=== PATIENT | female | born 1985 | race Caucasian/White ===

== ENCOUNTER 2021-07-20 13:41 | Inpatient (IN) | payer OTHER ==
[2021-07-20] MEDS ORDERED: IPRATROPIUM-ALBUTEROL 3 ML NEB INHALATION STA (13:49)
--- NOTE | 2021-07-20 14:12 | ED ---
General Adult HPI - General Source: patient, RN notes reviewed, old records reviewed Mode of arrival: ambulatory Limitations: no limitations <Fareed Asher - Last Filed: 07/20/21 14:58> <Jerome Cosby - Last Filed: 07/20/21 16:43> - General Chief complaint: Shortness of Breath Stated complaint: marco antonio Time Seen by Provider: 07/20/21 13:45 - History of Present Illness Initial comments: This is a 36-year-old female presents emergency Department complaining shortness of breath per patient spent in rehabilitation for 4 days she has rehabilitating for fentanyl heroin and benzodiazepines. Patient states she's had no fever chills. Patient states she had this happen before when she was withdrawing from her opiates. Patient denies any calf pain or leg swelling. Patient denies any chest pain. Patient has palpitations. Patient denies any cough. Patient states she just feels short of breath and they told her her oxygenation was poor. (Fareed Asher) - Related Data Home Medications Medication Instructions Recorded Confirmed Acetaminophen [Tylenol] 650 mg PO Q4H PRN 07/20/21 07/20/21 Calcium/Magnesium/Zinc/Vitamin D 1 tab PO TID PRN 07/20/21 07/20/21 Chlorpheniramine Maleate 4 mg PO Q4H PRN 07/20/21 07/20/21 [Chlor-Trimeton] Divalproex [Depakote] 250 mg PO BID 07/20/21 07/20/21 Docusate [Colace] 100 mg PO BID PRN 07/20/21 07/20/21 Folic Acid 1 mg PO DAILY 07/20/21 07/20/21 Hyoscyamine Sulfate [Levsin-Sl] 0.125 mg SL QID PRN 07/20/21 07/20/21 Ibuprofen [Motrin Ib] 600 mg PO Q6H PRN 07/20/21 07/20/21 Loperamide HCl [Imodium A-D] 4 mg PO QID PRN 07/20/21 07/20/21 Multivitamins, Thera [Multivitamin 1 tab PO DAILY 07/20/21 07/20/21 (formulary)] QUEtiapine [SEROquel] 400 mg PO HS 07/20/21 07/20/21 Thiamine [Vitamin B-1] 100 mg PO DAILY 07/20/21 07/20/21 buprenorphine HCL [Subutex] See Taper SUBLINGUAL DIRECTED 07/20/21 07/20/21 cloNIDine HCL [Catapres] 0.1 mg PO Q4H PRN 07/20/21 07/20/21 ondansetron HCL [Zofran] 8 mg PO Q6H PRN 07/20/21 07/20/21 Allergies Allergy/AdvReac Type Severity Reaction Status Date / Time No Known Allergies Allergy Verified 07/20/21 15:11 Review of Systems ROS Other: All systems not noted in ROS Statement are negative. <Fareed Asher - Last Filed: 07/20/21 14:58> ROS Other: All systems not noted in ROS Statement are negative. <Jerome Cosby - Last Filed: 07/20/21 16:43> ROS Statement: Those systems with pertinent positive or pertinent negative responses have been documented in the HPI. Past Medical History Past Medical History: Seizure Disorder Additional Past Medical History / Comment(s): HEPatitis C History of Any Multi-Drug Resistant Organisms: None Reported Past Surgical History: Section, Cholecystectomy Past Psychological History: Anxiety, Bipolar, Depression, Schizophrenia Smoking Status: Current every day smoker Past Alcohol Use History: None Reported Past Drug Use History: Heroin, Prescription Drug Abuse <Fareed Asher - Last Filed: 07/20/21 14:58> General Exam Limitations: no limitations <Fareed Asher - Last Filed: 07/20/21 14:58> - General Exam Comments Initial Comments: GENERAL: Patient is well-developed and well-nourished. Patient is nontoxic and well- hydrated and is in no acute distress. ENT: Neck is soft and supple. No significant lymphadenopathy is noted. Oropharynx is clear. Moist mucous membranes. Neck has full range of motion without eliciting any pain. EYES: The sclera were anicteric and conjunctiva were pink and moist. Extraocular movements were intact and pupils were equal round and reactive to light. Eyelids were unremarkable. PULMONARY: Decreased breath sounds with some extra wheezing. CARDIOVASCULAR: There is a regular rate and rhythm without any murmurs gallops or rubs. ABDOMEN: Soft and nontender with normal bowel sounds. SKIN: Skin is clear with no lesions or rashes and otherwise unremarkable. NEUROLOGIC: Patient is alert and oriented x3. Cranial nerves II through XII are grossly intact. Motor and sensory are also intact. Normal speech, volume and content. Symmetrical smile. MUSCULOSKELETAL: Normal extremities with adequate strength and full range of motion. No lower extremity swelling or edema. No calf tenderness. LYMPHATICS: No significant lymphadenopathy is noted PSYCHIATRIC: Normal psychiatric evaluation. (Fareed Asher) Course <Jerome Cosby - Last Filed: 07/20/21 16:43> Vital Signs 07/20/21 07/20/21 07/20/21 13:44 15:03 15:21 Temperature 99.2 F Pulse Rate 102 H 92 94 Respiratory 24 20 20 Rate Blood Pressure 110/64 O2 Sat by Pulse 92 L Oximetry 07/20/21 07/20/21 15:36 16:39 Temperature 99 F Pulse Rate 95 89 Respiratory 18 18 Rate Blood Pressure 109/68 128/80 O2 Sat by Pulse 93 L 95 Oximetry - Reevaluation(s) Reevaluation #1: 07/20/21 16:41 Patient endorsed me pending CAT scan results CAT scan negative for PE however does show evidence of interstitial markings and atelectasis in the bases. Patient will be admitted case is discussed with Dr. Chris (Jerome Cosby) Medical Decision Making - Lab Data Result diagrams: 07/20/21 14:02 07/20/21 14:02 <Fareed Asher - Last Filed: 07/20/21 14:58> - Lab Data Result diagrams: 07/20/21 14:02 07/20/21 14:02 - Radiology Data Radiology results: report reviewed (Imaging reviewed as well as report no defi nitive evidence of pulmonary embolism or is evidence of atelectasis and basilar interstitial markings. Patient is still has diminished breath sounds with wheezing though she does states she feels better.), image reviewed <Jerome Cosby - Last Filed: 07/20/21 16:43> - Medical Decision Making EKG shows normal sinus rhythm at 96 bpm UT interval 144 QRS is 76 QT interval 374 QTC is 472. Patient's EKG shows no ST segment elevation or depression. Patient received albuterol treatment 2 and steroids. Patient's d-dimer was elevated so her to CAT scan to rule out PE. I signed out the patient Dr. Cosby at 3 PM. He'll be taking over the care. (Fareed Asher) - Lab Data Lab Results 07/20/21 07/20/21 07/20/21 Range/Units 14:02 14:02 14:02 WBC 23.5 H (3.8-10.6) k/uL RBC 4.36 (3.80-5.40) m/uL Hgb 13.1 (11.4-16.0) gm/dL Hct 39.7 (34.0-46.0) % MCV 91.1 (80.0-100.0) fL MCH 30.1 (25.0-35.0) pg MCHC 33.0 (31.0-37.0) g/dL RDW 13.7 (11.5-15.5) % Plt Count 261 (150-450) k/uL MPV 8.0 Neutrophils % (Manual) 80 % Band Neuts % (Manual) 8 % Lymphocytes % (Manual) 6 % Monocytes % (Manual) 6 % Neutrophils # (Manual) 20.60 H (1.3-7.7) k/uL Lymphocytes # (Manual) 1.41 (1.0-4.8) k/uL Monocytes # (Manual) 1.41 H (0-1.0) k/uL Nucleated RBCs 0 (0-0) /100 WBC Manual Slide Review Performed Toxic Vacuolation Present Poikilocytosis (manual Present Anisocytosis (manual) Present PT 10.2 (9.0-12.0) sec INR 0.9 (<1.2) APTT 22.8 (22.0-30.0) sec D-Dimer 0.76 H (<0.60) mg/L FEU Sodium 140 (137-145) mmol/L Potassium 4.1 (3.5-5.1) mmol/L Chloride 104 (98-107) mmol/L Carbon Dioxide 29 (22-30) mmol/L Anion Gap 7 mmol/L BUN 18 H (7-17) mg/dL Creatinine 0.83 (0.52-1.04) mg/dL Est GFR (CKD-EPI)AfAm >90 (>60 ml/min/1.73 sqM) Est GFR (CKD-EPI)NonAf >90 (>60 ml/min/1.73 sqM) Glucose 140 H (74-99) mg/dL Plasma Lactic Acid Tenzin (0.7-2.0) mmol/L Calcium 9.3 (8.4-10.2) mg/dL Total Bilirubin 0.4 (0.2-1.3) mg/dL AST 67 H (14-36) U/L ALT 39 H (4-34) U/L Alkaline Phosphatase 113 (38-126) U/L Troponin I (0.000-0.034) ng/mL NT-Pro-B Natriuret Pep pg/mL Total Protein 6.8 (6.3-8.2) g/dL Albumin 3.2 L (3.5-5.0) g/dL Coronavirus (PCR) (Not Detectd) 07/20/21 07/20/21 07/20/21 Range/Units 14:02 14:02 14:02 WBC (3.8-10.6) k/uL RBC (3.80-5.40) m/uL Hgb (11.4-16.0) gm/dL Hct (34.0-46.0) % MCV (80.0-100.0) fL MCH (25.0-35.0) pg MCHC (31.0-37.0) g/dL RDW (11.5-15.5) % Plt Count (150-450) k/uL MPV Neutrophils % (Manual) % Band Neuts % (Manual) % Lymphocytes % (Manual) % Monocytes % (Manual) % Neutrophils # (Manual) (1.3-7.7) k/uL Lymphocytes # (Manual) (1.0-4.8) k/uL Monocytes # (Manual) (0-1.0) k/uL Nucleated RBCs (0-0) /100 WBC Manual Slide Review Toxic Vacuolation Poikilocytosis (manual Anisocytosis (manual) PT (9.0-12.0) sec INR (<1.2) APTT (22.0-30.0) sec D-Dimer (<0.60) mg/L FEU Sodium (137-145) mmol/L Potassium (3.5-5.1) mmol/L Chloride (98-107) mmol/L Carbon Dioxide (22-30) mmol/L Anion Gap mmol/L BUN (7-17) mg/dL Creatinine (0.52-1.04) mg/dL Est GFR (CKD-EPI)AfAm (>60 ml/min/1.73 sqM) Est GFR (CKD-EPI)NonAf (>60 ml/min/1.73 sqM) Glucose (74-99) mg/dL Plasma Lactic Acid Tenzin 1.8 (0.7-2.0) mmol/L Calcium (8.4-10.2) mg/dL Total Bilirubin (0.2-1.3) mg/dL AST (14-36) U/L ALT (4-34) U/L Alkaline Phosphatase (38-126) U/L Troponin I <0.012 (0.000-0.034) ng/mL NT-Pro-B Natriuret Pep 1240 pg/mL Total Protein (6.3-8.2) g/dL Albumin (3.5-5.0) g/dL Coronavirus (PCR) (Not Detectd) 07/20/21 Range/Units 14:02 WBC (3.8-10.6) k/uL RBC (3.80-5.40) m/uL Hgb (11.4-16.0) gm/dL Hct (34.0-46.0) % MCV (80.0-100.0) fL MCH (25.0-35.0) pg MCHC (31.0-37.0) g/dL RDW (11.5-15.5) % Plt Count (150-450) k/uL MPV Neutrophils % (Manual) % Band Neuts % (Manual) % Lymphocytes % (Manual) % Monocytes % (Manual) % Neutrophils # (Manual) (1.3-7.7) k/uL Lymphocytes # (Manual) (1.0-4.8) k/uL Monocytes # (Manual) (0-1.0) k/uL Nucleated RBCs (0-0) /100 WBC Manual Slide Review Toxic Vacuolation Poikilocytosis (manual Anisocytosis (manual) PT (9.0-12.0) sec INR (<1.2) APTT (22.0-30.0) sec D-Dimer (<0.60) mg/L FEU Sodium (137-145) mmol/L Potassium (3.5-5.1) mmol/L Chloride (98-107) mmol/L Carbon Dioxide (22-30) mmol/L Anion Gap mmol/L BUN (7-17) mg/dL Creatinine (0.52-1.04) mg/dL Est GFR (CKD-EPI)AfAm (>60 ml/min/1.73 sqM) Est GFR (CKD-EPI)NonAf (>60 ml/min/1.73 sqM) Glucose (74-99) mg/dL Plasma Lactic Acid Tenzin (0.7-2.0) mmol/L Calcium (8.4-10.2) mg/dL Total Bilirubin (0.2-1.3) mg/dL AST (14-36) U/L ALT (4-34) U/L Alkaline Phosphatase (38-126) U/L Troponin I (0.000-0.034) ng/mL NT-Pro-B Natriuret Pep pg/mL Total Protein (6.3-8.2) g/dL Albumin (3.5-5.0) g/dL Coronavirus (PCR) Not Detected (Not Detectd) Disposition <Fareed Asher - Last Filed: 07/20/21 14:58> <Jerome Cosby - Last Filed: 07/20/21 16:43> Clinical Impression: Asthmatic bronchitis, Acute bronchospasm, Polysubstance abuse Disposition: ADMITTED IP TO THIS [facility] Condition: Fair Referrals: None,Stated [Primary Care Provider] - 1-2 days
[2021-07-20 14:31] LABS: ALT 39 U/L (4-34); AST 67 U/L (14-36); African American GFR (CKD) >90 (>60 ml/min/1.73 sqM); Albumin 3.2 g/dL (3.5-5.0); Alkaline Phosphatase 113 U/L (38-126); Anion Gap 7 mmol/L; Blood Urea Nitrogen 18 mg/dL (7-17); Calcium 9.3 mg/dL (8.4-10.2); Carbon Dioxide 29 mmol/L (22-30); Chloride 104 mmol/L (98-107); Glucose 140 mg/dL (74-99); Non-African American GFR(CKD) >90 (>60 ml/min/1.73 sqM); Potassium 4.1 mmol/L (3.5-5.1); Sodium 140 mmol/L (137-145); Total Bilirubin 0.4 mg/dL (0.2-1.3); Total Protein 6.8 g/dL (6.3-8.2)
[2021-07-20 14:32] LABS: HCT 39.7 % (34.0-46.0); HGB 13.1 gm/dL (11.4-16.0); MCH 30.1 pg (25.0-35.0); MCV 91.1 fL (80.0-100.0); Platelet Count 261 k/uL (150-450); RBC 4.36 m/uL (3.80-5.40); RDW 13.7 % (11.5-15.5); WBC 23.5 k/uL (3.8-10.6)
--- NOTE | 2021-07-20 14:35 | XR ---
EXAMINATION TYPE: XR chest 2V DATE OF EXAM: 07/20/2021 COMPARISON: NONE HISTORY: Difficulty breathing. Hypoxemia. TECHNIQUE: 2 views FINDINGS: Heart and mediastinum are normal. Lungs are clear. Diaphragm is normal. Bony thorax appears normal. IMPRESSION: Normal chest.
[2021-07-20 14:36] LABS: INR 0.9 (<1.2); Partial Thromboplastin Time 22.8 sec (22.0-30.0); Prothrombin Time 10.2 sec (9.0-12.0)
[2021-07-20] MEDS ORDERED: methylPREDNISolone SOD SUCCI 125 MG/2 ML VIAL IV STA (14:58)
[2021-07-20 15:32] LABS: Band Neutrophils % 8 %; Lymphocytes # (M) 1.41 k/uL (1.0-4.8); Monocytes # (M) 1.41 k/uL (0-1.0); Neutrophils % (M) 80 %; Nucleated Red Blood Cells 0 /100 WBC (0-0); Total Cells Counted 100
[2021-07-20 15:34] LABS: Anisocytosis (M) Present; Poikilocytosis (M) Present; Toxic Vacuolation Present
--- NOTE | 2021-07-20 16:24 | CT ---
EXAMINATION TYPE: CT chest angio for PE DATE OF EXAM: 07/20/2021 COMPARISON: None HISTORY: Elevated d-dimer CT DLP: 734.7 mGycm Automated exposure control for dose reduction was used. CONTRAST: Performed with IV Contrast, patient injected with 100 mL of Isovue 370. Images obtained from the thoracic inlet to the diaphragm with IV contrast. There are 3-D post process ed images. Mediastinum is normal. Thoracic aorta is intact. There is no aneurysm or dissection. There are no hil ar masses. There is normal contrast opacification of the pulmonary arteries. There are no filling def ects. There is some mild reticular infiltrate and atelectasis at the lung bases. There is no pleural effusi on. There is no pneumothorax. Upper lung doshi are clear. There is some spurring in the thoracic spine. There is no compression fracture. The sternum is intact . IMPRESSION: No evidence of pulmonary embolism. Minimal reticular interstitial infiltrate and atelectasis at the l virgilio bases. Normal heart.
[2021-07-20] MEDS ORDERED: IBUPROFEN 600 MG TAB PO PRN (16:44)
[2021-07-20] MEDS ORDERED: NON FORMULARY DRUG (Calcium/Magnesium/Zinc/Vitamin D 1 TAB) PO PRN (16:44)
[2021-07-20] MEDS ORDERED: ONDANSETRON 4 MG TAB PO PRN (16:44)
[2021-07-20] MEDS ORDERED: HYOSCYAMINE SULFATE 0.125 MG TAB PO PRN (16:44)
[2021-07-20] MEDS ORDERED: cloNIDine HCL 0.1 MG TAB PO PRN (16:44)
[2021-07-20] MEDS ORDERED: diphenhydrAMINE 25 MG CAP PO PRN (16:44)
[2021-07-20] MEDS: methylPREDNISolone SOD SUCCI 125 MG/2 ML VIAL IV SCH (19:13)
[2021-07-20] MEDS: SODIUM CHLORIDE 0.9% 1,000 ML IV SCH (19:13)
--- NOTE | 2021-07-20 20:20 | P.HPIM ---
History of Present Illness H&P Date: 07/20/21 Chief Complaint: Shortness of breath 36-year-old female presents emergency Department complaining shortness of breath per patient spent in rehabilitation for 4 days she has rehabilitating for fentanyl heroin and benzodiazepines. Patient states she's had no fever chills. Patient states she had this happen before when she was withdrawing from her opiates. Patient denies any calf pain or leg swelling. Patient denies any chest pain. Patient has palpitations. Patient denies any cough. Patient states she just feels short of breath and they told her her oxygenation was poor Workup in ED revealed elevated white blood count of 23.5, hemoglobin 13.1 with platelet count of 261, sodium 140, potassium 4.1, BUN/creatinine of 18/0.83 and glucose of 140; d-dimer is elevated CTA chest was done to rule out PE which was negative but did reveal interstitial markings and atelectasis and basis EKG shows normal sinus rhythm with no acute ST or T-wave changes Review of Systems REVIEW OF SYSTEMS: CONSTITUTIONAL: No fever, no malaise, no fatigue. HEENT: No recent visual problems or hearing problems. Denied any sore throat. CARDIOVASCULAR: No chest pain, orthopnea, PND, no palpitations, no syncope. PULMONARY: No shortness of breath, no cough, no hemoptysis. GASTROINTESTINAL: No diarrhea, no nausea, no vomiting, no abdominal pain. NEUROLOGICAL: No headaches, no weakness, no numbness. HEMATOLOGICAL: Denies any bleeding or petechiae. GENITOURINARY: Denies any burning micturition, frequency, or urgency. MUSCULOSKELETAL/RHEUMATOLOGICAL: Denies any joint pain, swelling, or any muscle pain. ENDOCRINE: Denies any polyuria or polydipsia. The rest of the 14-point review of systems is negative. Past Medical History Past Medical History: Seizure Disorder Additional Past Medical History / Comment(s): HEPatitis C History of Any Multi-Drug Resistant Organisms: None Reported Past Surgical History: Section, Cholecystectomy Past Anesthesia/Blood Transfusion Reactions: Previous Problems w/ Anesthesia Additional Past Anesthesia/Blood Transfusion Reaction / Comment(s): Pt states she has a tendency to have a hard time waking up after anesthesia. She states it just takes her a while to wake up. Past Psychological History: Anxiety, Bipolar, Depression, Schizophrenia Smoking Status: Current some day smoker Past Alcohol Use History: Abuse, Daily Additional Past Alcohol Use History / Comment(s): Pt states the last time she drank alcohol she was 23. She started smoking 2 ppd and states she smokes 10 cigarettes a day at this time. Past Drug Use History: Cocaine, Heroin, IV Drug Use, Marijuana, Methamphetamine, Opiates, Prescription Drug Abuse - Past Family History Father Family Medical History: Myocardial Infarction (OK) Mother Family Medical History: Myocardial Infarction (OK) Medications and Allergies Home Medications Medication Instructions Recorded Confirmed Type Acetaminophen [Tylenol] 650 mg PO Q4H PRN 07/20/21 07/20/21 History Calcium/Magnesium/Zinc/Vitamin D 1 tab PO TID PRN 07/20/21 07/20/21 History Chlorpheniramine Maleate 4 mg PO Q4H PRN 07/20/21 07/20/21 History [Chlor-Trimeton] Divalproex [Depakote] 250 mg PO BID 07/20/21 07/20/21 History Docusate [Colace] 100 mg PO BID PRN 07/20/21 07/20/21 History Folic Acid 1 mg PO DAILY 07/20/21 07/20/21 History Hyoscyamine Sulfate [Levsin-Sl] 0.125 mg SL QID PRN 07/20/21 07/20/21 History Ibuprofen [Motrin Ib] 600 mg PO Q6H PRN 07/20/21 07/20/21 History Loperamide HCl [Imodium A-D] 4 mg PO QID PRN 07/20/21 07/20/21 History Multivitamins, Thera [Multivitamin 1 tab PO DAILY 07/20/21 07/20/21 History (formulary)] QUEtiapine [SEROquel] 400 mg PO HS 07/20/21 07/20/21 History Thiamine [Vitamin B-1] 100 mg PO DAILY 07/20/21 07/20/21 History buprenorphine HCL [Subutex] See Taper SUBLINGUAL DIRECTED 07/20/21 07/20/21 History cloNIDine HCL [Catapres] 0.1 mg PO Q4H PRN 07/20/21 07/20/21 History ondansetron HCL [Zofran] 8 mg PO Q6H PRN 07/20/21 07/20/21 History Allergies Allergy/AdvReac Type Severity Reaction Status Date / Time No Known Allergies Allergy Verified 07/20/21 15:11 Physical Exam Vitals: Vital Signs Temp Pulse Pulse Resp BP BP Pulse Ox 07/20/21 19:15 98.4 F 88 16 120/76 95 07/20/21 17:31 99 F 85 18 121/69 95 07/20/21 16:39 99 F 89 18 128/80 95 07/20/21 15:36 95 18 109/68 93 L 07/20/21 15:21 94 20 07/20/21 15:03 92 20 07/20/21 13:44 99.2 F 102 H 24 110/64 92 L Intake and Output 07/20/21 07/20/21 07/20/21 06:59 14:59 22:59 Intake Total 180 Balance 180 Intake: Oral 180 Other: Weight 111.584 kg 111.584 kg - Constitutional General appearance: Present: average body habitus, cooperative, no acute distress - EENT Eyes: Present: anicteric sclerae, EOMI, PERRLA, normal appearance ENT: Present: hearing grossly normal, normal oropharynx Ears: bilateral: normal - Neck Neck: Present: normal ROM. Absent: lymphadenopathy, rigidity, thyromegaly Carotids: negative: bruit present Thyroid: bilateral: normal size, negative: enlarged, nodule - Respiratory Respiratory: bilateral: CTA, negative: rales, rhonchi, wheezing - Cardiovascular Rhythm: regular Heart sounds: normal: S1, S2 Abnormal Heart Sounds: Absent: systolic murmur, diastolic murmur - Gastrointestinal General gastrointestinal: Present: normal bowel sounds, soft. Absent: distended, organomegaly, tenderness - Genitourinary Genitourinary Comment(s): deferred - Integumentary Integumentary: Present: normal turgor. Absent: jaundiced, rash, ulcer - Neurologic Neurologic: Present: CNII-XII intact. Absent: focal deficits - Musculoskeletal Musculoskeletal: Present: gait normal, strength equal bilaterally - Psychiatric Psychiatric: Present: A&O x's 3, appropriate affect, intact judgment & insight Results CBC & Chem 7: 07/20/21 14:02 07/20/21 14:02 Labs: Abnormal Lab Results - Last 24 Hours (Table) 07/20/21 07/20/21 07/20/21 Range/Units 14:02 14:02 14:02 WBC 23.5 H (3.8-10.6) k/uL Neutrophils # (Manual) 20.60 H (1.3-7.7) k/uL Monocytes # (Manual) 1.41 H (0-1.0) k/uL D-Dimer 0.76 H (<0.60) mg/L FEU BUN 18 H (7-17) mg/dL Glucose 140 H (74-99) mg/dL AST 67 H (14-36) U/L ALT 39 H (4-34) U/L Albumin 3.2 L (3.5-5.0) g/dL Thrombosis Risk Factor Assmnt - Choose All That Apply Each Factor Represents 1 point: Obesity (BMI >25) Thrombosis Risk Factor Assessment Total Risk Factor Score: 1 Thrombosis Risk Factor Assessment Level: Low Risk Assessment and Plan Assessment: 1. Severe acute bronchospasm/bronchitis; patient received 1 dose of Rocephin 1 g; we will start patient on azithromycin 500 mg IV daily; Solu-Medrol 60 mg IV every 6 hours; O2 per nasal cannula and titrate as needed 2. Significant leukocytosis; sepsis versus reactive; we will monitor CBC, CRP and pro-calcitonin; we will initiate further sepsis workup if white blood count remains elevated 4. Hypertension; Catapres 0.1 mg by mouth every 4 hours 5. Bipolar disorder; we will continue with home dose of Seroquel and Depakote DVT prophylaxis; SCDs CODE STATUS; full code
[2021-07-20] MEDS ORDERED: PROMETHAZINE 25 MG TAB PO PRN (20:23)
[2021-07-20] MEDS: QUEtiapine 200 MG TAB PO SCH (20:26)
[2021-07-20] MEDS: IPRATROPIUM-ALBUTEROL 3 ML NEB INHALATION PRN (20:26)
[2021-07-20] MEDS: DIVALPROEX 250 MG TABLET.DR PO SCH (20:26)
[2021-07-21] MEDS: methylPREDNISolone SOD SUCCI 125 MG/2 ML VIAL IV SCH ×5 (01:44→20:09)
[2021-07-21] MEDS: SODIUM CHLORIDE 0.9% 1,000 ML IV SCH ×3 (04:26→22:42)
[2021-07-21] MEDS: IPRATROPIUM-ALBUTEROL 3 ML NEB INHALATION PRN ×2 (08:15→20:30)
[2021-07-21] MEDS: THIAMINE 100 MG TAB PO SCH (08:27)
[2021-07-21] MEDS: DIVALPROEX 250 MG TABLET.DR PO SCH ×2 (08:27→20:08)
[2021-07-21] MEDS: FOLIC ACID 1 MG TAB PO SCH (08:27)
[2021-07-21] MEDS: MULTIVITAMINS, THERA 1 EACH TAB PO SCH (08:27)
[2021-07-21 08:35] LABS: HCT 38.9 % (37.2-46.3); MCH 28.8 pg (27.0-32.0); MCHC 30.8 g/dL (32.0-37.0); MCV 93.3 fL (80.0-97.0); Platelet Count 241 X 10*3/uL (140-440); RBC 4.17 X 10*6/uL (4.10-5.20); RDW 13.5 % (11.5-14.5); WBC 17.09 X 10*3/uL (4.50-10.00)
[2021-07-21] MEDS ORDERED: AZITHROMYCIN 500 MG in SODIUM CHLORIDE 0.9% 250 ML IVPB SCH (09:00)
[2021-07-21 09:27] LABS: African American GFR (CKD) 137.8 (60.0-200.0); Anion Gap 13.9 mmol/L (4.00-12.00); BUN/Creat Ratio 24.83 Ratio (12.00-20.00); Blood Urea Nitrogen 14.9 mg/dL (9.0-27.0); Calcium 9.1 mg/dL (8.7-10.3); Carbon Dioxide 23.1 mmol/L (21.6-31.8); Non-African American GFR(CKD) 118.9 (60.0-200.0); Potassium 4.5 mmol/L (3.5-5.5)
[2021-07-21 10:20] LABS: C Reactive Protein 6.2 mg/dL (0.00-0.80)
[2021-07-21 10:21] LABS: Basophils # (A) 0.03 X 10*3/uL (0.00-0.10); Basophils % (A) 0.2 %; Eosinophils # (A) 0 X 10*3/uL (0.04-0.35); Eosinophils % (A) 0 %; Lymphocytes # (A) 1.18 X 10*3/uL (0.90-5.00); Lymphocytes % (A) 6.9 %; Monocytes # (A) 0.26 X 10*3/uL (0.20-1.00); Monocytes % (A) 1.5 %; Neutrophils # (A) 15.44 X 10*3/uL (1.80-7.70); Neutrophils % (A) 90.3 %
[2021-07-21] MEDS ORDERED: diazePAM 5 MG TAB PO STA (10:57)
[2021-07-21] MEDS ORDERED: LOPERAMIDE 2 MG CAP PO PRN (11:01)
--- NOTE | 2021-07-21 11:11 | P.PN ---
Subjective From records: 36-year-old female presents emergency Department complaining shortness of breath per patient spent in rehabilitation for 4 days she has rehabilitating for fentanyl heroin and benzodiazepines. Patient states she's had no fever chills. Patient states she had this happen before when she was withdrawing from her opiates. Patient denies any calf pain or leg swelling. Patient denies any chest pain. Patient has palpitations. Patient denies any cough. Patient states she just feels short of breath and they told her her oxygenation was poor Workup in ED revealed elevated white blood count of 23.5, hemoglobin 13.1 with platelet count of 261, sodium 140, potassium 4.1, BUN/creatinine of 18/0.83 and glucose of 140; d-dimer is elevated CTA chest was done to rule out PE which was negative but did reveal interstitial markings and atelectasis and basis EKG shows normal sinus rhythm with no acute ST or T-wave changes Subjective: 07/21/2021 This is a pleasant 36 years old female who presents on 07/20 from [facility] for shortness of breath and low oxygen reported in 80s, she wasn't [facility] for detection of from heroin, fentanyl and benzodiazepine. When I saw the patient she was lying in bed does not look tachypneic however she was complaining of from dyspnea. She states she was in [facility] twice before she was sent [place] [facility] [place] [facility] because she was over medicated. And after stabilization she was discharged [facility] about 2 weeks ago as per patient. Also she states that she was on oxygen at the previous hospital and ask her to follow up with [facility] as an outpatient, however she denies any [facility] she follow up with. She was not getting her oxygen at [facility] so she was sent to this facility. Condition denies chest pain. She is complaining from cough and some phlegm stating its greenish or yellow in color. She complains from pain everywhere. She was started on Suboxone equivalent at [facility] which is not available at her and that make her upset. However she received another pain medication here and 1 dose of volume is provided for her. She complains also from the area but no abdominal pain. No significant nausea or vomiting. No urinary complaints. She wants something for anxiety and she is hard to sleep On admission her CTA was negative for PE, competent was negative. Objective - Vital Signs Vital signs: Vital Signs Temp 98.3 F 07/21/21 07:00 Pulse 85 07/21/21 08:24 Resp 18 07/21/21 07:00 BP 164/81 07/21/21 07:00 Pulse Ox 95 07/21/21 08:18 Intake & Output 07/20/21 07/21/21 07/21/21 18:59 06:59 18:59 Intake Total 180 300 Balance 180 300 Weight 111.584 kg 111.584 kg Intake: Oral 180 300 Other: Voiding Method Toilet # Voids 2 - Exam GENERAL: The patient is alert and oriented x3, not in any acute distress. Obese HEENT: Pupils are round and equally reacting to light. EOMI. No scleral icterus. No conjunctival pallor. Normocephalic, atraumatic. No pharyngeal erythema. No thyromegaly. CARDIOVASCULAR: S1 and S2 present. No murmurs, rubs, or gallops. -PULMONARY: Chest is clear to auscultation, mild bilateral scattered wheezing, no crackles. ABDOMEN: Soft, nontender, nondistended, normoactive bowel sounds. No palpable organomegaly. MUSCULOSKELETAL: No joint swelling or deformity. EXTREMITIES: No cyanosis, clubbing, or pedal edema. NEUROLOGICAL: Gross neurological examination did not reveal any focal deficits. SKIN: No rashes. no petechiae. - Labs CBC & Chem 7: 07/21/21 04:43 07/21/21 04:43 Labs: Abnormal Lab Results - Last 24 Hours (Table) 07/20/21 07/20/21 07/20/21 Range/Units 14:02 14:02 14:02 WBC 23.5 H (3.8-10.6) k/uL MCHC (32.0-37.0) g/dL Immature Gran # (0.00-0.04) X 10*3/uL Neutrophils # (1.80-7.70) X 10*3/uL Neutrophils # (Manual) 20.60 H (1.3-7.7) k/uL Monocytes # (Manual) 1.41 H (0-1.0) k/uL Eosinophils # (0.04-0.35) X 10*3/uL D-Dimer 0.76 H (<0.60) mg/L FEU Anion Gap (4.00-12.00) mmol/L BUN 18 H (7-17) mg/dL BUN/Creatinine Ratio (12.00-20.00) Ratio Glucose 140 H (74-99) mg/dL AST 67 H (14-36) U/L ALT 39 H (4-34) U/L C-Reactive Protein (0.00-0.80) mg/dL Albumin 3.2 L (3.5-5.0) g/dL Procalcitonin (0.02-0.09) ng/mL 07/21/21 07/21/21 07/21/21 Range/Units 04:43 04:43 04:43 WBC 17.09 H (3.8-10.6) k/uL MCHC 30.8 L (32.0-37.0) g/dL Immature Gran # 0.18 H (0.00-0.04) X 10*3/uL Neutrophils # 15.44 H (1.80-7.70) X 10*3/uL Neutrophils # (Manual) (1.3-7.7) k/uL Monocytes # (Manual) (0-1.0) k/uL Eosinophils # 0 L (0.04-0.35) X 10*3/uL D-Dimer (<0.60) mg/L FEU Anion Gap 13.90 H (4.00-12.00) mmol/L BUN (7-17) mg/dL BUN/Creatinine Ratio 24.83 H (12.00-20.00) Ratio Glucose 190 H (74-99) mg/dL AST (14-36) U/L ALT (4-34) U/L C-Reactive Protein 6.20 H (0.00-0.80) mg/dL Albumin (3.5-5.0) g/dL Procalcitonin 2.33 H (0.02-0.09) ng/mL Assessment and Plan Assessment: Possible acute purulent tracheobronchitis Recent heroin abuse with injecting and sniffing, injecting into both forearms and hands high blood pressure bipolar disorder and Seroquel and Depakote Obesity Plan: This is a pleasant 36 years old female who presents with bronchitis and heroin withdrawal He was Zithromax, consult infectious disease team, check oxygen with rest on exertion. Check ultrasound of both legs Check urine analysis. Check for C. diff and start loperamide Labs and medication were reviewed.. Continue same treatment. Continue with symptomatic treatment. Resume home medication. Monitor lytes and vitals. DVT and GI prophylaxis. Further recommendationsas per clinical course of the patient DVT prophylaxis: Subcutaneous heparin GI Prophylaxis: Pepcid Prognosis is guarded
[2021-07-21 12:01] LABS: Appearance,Urine Clear (Clear); Bacteria,Urine Rare /hpf; Bilirubin,Urine Negative (Negative); Blood,Urine Large (Negative); Color,Urine Yellow; Glucose,Urine (UA) 3+ (Negative); Ketones,Urine 1+ (Negative); Leukocyte Esterase,Urine Negative (Negative); Mucus,Urine Rare /hpf; Nitrite,Urine Negative (Negative); Protein,Urine Trace (Negative); RBC,Urine >182 /hpf (0-5); Specific Gravity,Urine 1.027 (1.001-1.035); Squamous Epithelial Cell,Urine 4 /hpf (0-4); Urobilinogen,Urine <2.0 mg/dL (<2.0); WBC,Urine 9 /hpf (0-5)
[2021-07-21 12:14] LABS: Albumin 3.7 g/dL (3.5-5.0); Globulin 3.7 g/dL; Total Protein 7.4 g/dL (6.3-8.2)
[2021-07-21 12:15] LABS: ALT 36 U/L (4-34); AST 47 U/L (14-36); Alkaline Phosphatase 133 U/L (38-126); Total Bilirubin 0.3 mg/dL (0.2-1.3)
[2021-07-21 12:17] LABS: HCG,Qualitative Serum Not Detected
--- NOTE | 2021-07-21 12:25 | US ---
EXAMINATION TYPE: US venous doppler duplex LE DATE OF EXAM: 07/21/2021 12:06 PM COMPARISON: NONE CLINICAL HISTORY: leg swelling. SIDE PERFORMED: Bilateral TECHNIQUE: The lower extremity deep venous system is examined utilizing real time linear array sonog [place] with graded compression, doppler sonography and color-flow sonography. VESSELS IMAGED: Common Femoral Vein Deep Femoral Vein Greater Saphenous Vein * Femoral Vein Popliteal Vein Small Saphenous Vein * Proximal Calf Veins (* superficial vessels) Right Leg: Negative for DVT Left Leg: Negative for DVT Grayscale, color doppler, spectral doppler imaging performed of the deep veins of the bilateral lower extremities. There is normal flow, compressibility, vascular waveforms. IMPRESSION: No ultrasound evidence for acute DVT in either lower extremity.
[2021-07-21] MEDS: ACETAMINOPHEN TAB 325 MG TAB PO PRN (13:20)
[2021-07-21 15:54] VITALS: BMI 46.5
[2021-07-21] MEDS: cloNIDine HCL 0.1 MG TAB PO SCH ×2 (17:59→22:41)
[2021-07-21] MEDS: QUEtiapine 200 MG TAB PO SCH (20:08)
[2021-07-21] MEDS: FAMOTIDINE 20 MG/2 ML VIAL IV SCH (20:08)
[2021-07-21] MEDS: HEPARIN SODIUM,PORCINE/PF 5,000 UNIT/0.5 ML SYRINGE SQ SCH (20:09)
[2021-07-22] MEDS: methylPREDNISolone SOD SUCCI 125 MG/2 ML VIAL IV SCH ×6 (00:29→21:35)
[2021-07-22] MEDS: HALOPERIDOL LACTATE 5 MG/ML 1 ML VIAL IM PRN ×2 (03:42→13:27)
[2021-07-22 06:34] LABS: African American GFR (CKD) >90 (>60 ml/min/1.73 sqM); Anion Gap 8 mmol/L; Blood Urea Nitrogen 20 mg/dL (7-17); Calcium 8.6 mg/dL (8.4-10.2); Carbon Dioxide 23 mmol/L (22-30); Chloride 106 mmol/L (98-107); Glucose 211 mg/dL (74-99); Non-African American GFR(CKD) >90 (>60 ml/min/1.73 sqM); Potassium 4.8 mmol/L (3.5-5.1); Sodium 137 mmol/L (137-145)
--- NOTE | 2021-07-22 06:55 | P.CONS ---
History of Present Illness - Reason for Consult Consult date: 07/21/21 Leukocytosis , High procalcitonin Requesting physician: Soren E Sheet - Chief Complaint Shortness of breath x few days - History of Present Illness istory of present illness : Patient is 36-year-old female presenting to the ER yesterday afternoon for evaluation of shortness of breath and this patient presenting from the drug rehabilitation center for the patient has been there for 4 days rehabilitating from fentanyl and heroin and benzodiazepine patient mention she usually have the symptoms when she is withdrawing from her opiates the patient denies having any chest pain patient denies having any cough or sputum production no URI symptoms some nausea but no vomiting no abdominal pain or any diarrhea on presentation to the hospital the patient did have low- grade fever of 29.2 F patient was satting 90 to 93% on room air patient did have white count of 23,000 with a left shift kidney function was normal liver enzymes are mildly elevated mooney PCR was negative repeat white count this morning is 17,000 UA with evidence of hematuria infection was consulted for evaluation of leukocytosis and high procalcitonin patient did have a chest x-ray which was normal CT angiogram of the chest negative for PE however did show some mild reticular interstitial infiltrate and atelectasis at the lung bases patient has been started on Rocephin and Zithromax Review of system: CONSTITUTIONAL: Positive for weakness denies high-grade fever. EYES: No complaint. ENT: No complaint. RESPITORY SYSTEM: As per history of present illness. CARDIOVASCULAR: No complaint. GENITOURINARY: No complaint. GASTROINTESTINAL: No complaint. MUSCULOSKELETAL: No complaint. INTEGUMENTARY: No complaint. PSYCHOLOGIC: No complaint. ENDOCRINE: No complaint. NEUROLOGIC: No complaint. Past medical history : Reviewed, documented below Past surgical history : Reviewed, documented below Social history: Reviewed, documented below Medications: Reviewed, as documented below EXAMINATION: Vital sigans= Reviewed and documented below GENERAL DESCRIPTION: Middle-aged female lying in bed, no distress. No tachypnea or accessory muscle of respiration use. HEENT: Shows Pallor , no scleral icterus. Oral mucous membrane is dry. NECK: Trachea central, no thyromegaly. LUNGS: Unlabored breathing. Decreased breath sound at the base. No wheeze or crackle. HEART: S1, S2, regular rate and rhythm. ABDOMEN: Soft, no tenderness , guarding or rigidity EXTREMITIES: No edema of feet. SKIN: No rash, no masses palpable. NEUROLOGICAL: The patient is awake, alert, oriented x3, mood and affect normal. LABS AND RADIOLOGY: Reviewed results see below Assessment : Patient presented to hospital with increasing shortness of breath and this patient who did have minimal cough not bringing up any sputum patient did have a infiltrate on the CT with elevated procalcitonin concern for possible pneumonia possible community-acquired is currently do not have any other obvious focus of infection Plan: 1-Rocephin 1 g daily and Zithromax to continue 2-try to obtain a sputum for Gram stain and culture 3-gentle IV fluid We will follow on clinical condition and cultures to further adjust medication if needed Thank you for this consultation we will follow the patient along with you Past Medical History Past Medical History: Seizure Disorder Additional Past Medical History / Comment(s): HEPatitis C History of Any Multi-Drug Resistant Organisms: None Reported Past Surgical History: Section, Cholecystectomy Past Anesthesia/Blood Transfusion Reactions: Previous Problems w/ Anesthesia Additional Past Anesthesia/Blood Transfusion Reaction / Comm: Pt states she has a tendency to have a hard time waking up after anesthesia. She states it just takes her a while to wake up. Past Psychological History: Anxiety, Bipolar, Depression, Schizophrenia Smoking Status: Current some day smoker Past Alcohol Use History: Abuse, Daily Additional Past Alcohol Use History / Comment(s): Pt states the last time she drank alcohol she was 23. She started smoking 2 ppd and states she smokes 10 cigarettes a day at this time. Past Drug Use History: Cocaine, Heroin, IV Drug Use, Marijuana, Methamphetamine, Opiates, Prescription Drug Abuse - Past Family History Father Family Medical History: Myocardial Infarction ([place]) Mother Family Medical History: Myocardial Infarction ([place]) Medications and Allergies Home Medications Medication Instructions Recorded Confirmed Type Acetaminophen [Tylenol] 650 mg PO Q4H PRN 07/20/21 07/20/21 History Calcium/Magnesium/Zinc/Vitamin D 1 tab PO TID PRN 07/20/21 07/20/21 History Chlorpheniramine Maleate 4 mg PO Q4H PRN 07/20/21 07/20/21 History [Chlor-Trimeton] Divalproex [Depakote] 250 mg PO BID 07/20/21 07/20/21 History Docusate [Colace] 100 mg PO BID PRN 07/20/21 07/20/21 History Folic Acid 1 mg PO DAILY 07/20/21 07/20/21 History Hyoscyamine Sulfate [Levsin-Sl] 0.125 mg SL QID PRN 07/20/21 07/20/21 History Ibuprofen [Motrin Ib] 600 mg PO Q6H PRN 07/20/21 07/20/21 History Loperamide HCl [Imodium A-D] 4 mg PO QID PRN 07/20/21 07/20/21 History Multivitamins, Thera [Multivitamin 1 tab PO DAILY 07/20/21 07/20/21 History (formulary)] QUEtiapine [SEROquel] 400 mg PO HS 07/20/21 07/20/21 History Thiamine [Vitamin B-1] 100 mg PO DAILY 07/20/21 07/20/21 History buprenorphine HCL [Subutex] See Taper SUBLINGUAL DIRECTED 07/20/21 07/20/21 History cloNIDine HCL [Catapres] 0.1 mg PO Q4H PRN 07/20/21 07/20/21 History ondansetron HCL [Zofran] 8 mg PO Q6H PRN 07/20/21 07/20/21 History Allergies Allergy/AdvReac Type Severity Reaction Status Date / Time No Known Allergies Allergy Verified 07/20/21 15:11 Physical Exam Vitals: Vital Signs Temp Pulse Pulse Resp BP Pulse Ox 07/22/21 02:06 98.5 F 77 16 144/82 93 L 07/21/21 21:01 98.2 F 97 22 145/82 95 07/21/21 20:43 92 07/21/21 20:31 90 96 07/21/21 15:00 98.2 F 91 16 139/76 95 07/21/21 08:24 85 07/21/21 08:18 95 07/21/21 08:15 85 07/21/21 07:00 98.3 F 90 18 164/81 99 Intake and Output 07/21/21 07/21/21 07/22/21 14:59 22:59 06:59 Intake Total 1826 118 Balance 1826 118 Intake: Intake, IV Titration 850 Amount Azithromycin 500 mg In 250 Sodium Chloride 0.9% 250 ml @ 250 mls/hr IVPB DAILY [facility] Rx#:[id number] Sodium Chloride 0.9% 1, 600 000 ml @ 100 mls/hr IV . Q10H KASSANDRA Rx#:[id number] Oral 976 118 Other: Voiding Method Toilet Toilet # Voids 2 Weight 111.584 kg Results CBC & Chem 7: 07/21/21 04:43 07/22/21 05:24 Labs: Abnormal Lab Results - Last 24 Hours (Table) 07/21/21 07/21/21 07/21/21 Range/Units 04:43 04:43 04:43 WBC 17.09 H (4.50-10.00) X 10*3/uL MCHC 30.8 L (32.0-37.0) g/dL Immature Gran # 0.18 H (0.00-0.04) X 10*3/uL Neutrophils # 15.44 H (1.80-7.70) X 10*3/uL Eosinophils # 0 L (0.04-0.35) X 10*3/uL Anion Gap 13.90 H (4.00-12.00) mmol/L BUN (7-17) mg/dL Creatinine (0.52-1.04) mg/dL BUN/Creatinine Ratio 24.83 H (12.00-20.00) Ratio Glucose 190 H (70-110) mg/dL AST (14-36) U/L ALT (4-34) U/L Alkaline Phosphatase (38-126) U/L C-Reactive Protein 6.20 H (0.00-0.80) mg/dL Procalcitonin 2.33 H (0.02-0.09) ng/mL Urine Protein (Negative) Urine Glucose (UA) (Negative) Urine Ketones (Negative) Urine Blood (Negative) Urine RBC (0-5) /hpf Urine WBC (0-5) /hpf Urine Bacteria (None) /hpf Urine Mucus (None) /hpf 07/21/21 07/21/21 07/22/21 Range/Units 11:23 11:23 05:24 WBC (4.50-10.00) X 10*3/uL MCHC (32.0-37.0) g/dL Immature Gran # (0.00-0.04) X 10*3/uL Neutrophils # (1.80-7.70) X 10*3/uL Eosinophils # (0.04-0.35) X 10*3/uL Anion Gap (4.00-12.00) mmol/L BUN 20 H (7-17) mg/dL Creatinine 0.46 L (0.52-1.04) mg/dL BUN/Creatinine Ratio (12.00-20.00) Ratio Glucose 211 H (70-110) mg/dL AST 47 H (14-36) U/L ALT 36 H (4-34) U/L Alkaline Phosphatase 133 H (38-126) U/L C-Reactive Protein (0.00-0.80) mg/dL Procalcitonin (0.02-0.09) ng/mL Urine Protein Trace H (Negative) Urine Glucose (UA) 3+ H (Negative) Urine Ketones 1+ H (Negative) Urine Blood Large H (Negative) Urine RBC >182 H (0-5) /hpf Urine WBC 9 H (0-5) /hpf Urine Bacteria Rare H (None) /hpf Urine Mucus Rare H (None) /hpf Microbiology - Last 24 Hours (Table) 07/20/21 15:29 Blood Culture Gram Stain - Preliminary Blood Blood Culture - Preliminary Streptococcus species 07/20/21 15:29 Blood Culture - Final Blood 07/20/21 15:10 Blood Culture - Preliminary Blood No Growth after 24 hours
[2021-07-22] MEDS: IPRATROPIUM-ALBUTEROL 3 ML NEB INHALATION PRN ×3 (07:24→18:13)
[2021-07-22 09:24] LABS: Basophils # (A) 0.02 X 10*3/uL (0.00-0.10); Basophils % (A) 0.1 %; Eosinophils # (A) 0 X 10*3/uL (0.04-0.35); Eosinophils % (A) 0 %; HCT 37.8 % (37.2-46.3); HGB 11.5 g/dL (12.0-15.0); Lymphocytes # (A) 1.11 X 10*3/uL (0.90-5.00); Lymphocytes % (A) 7.6 %; MCH 28.9 pg (27.0-32.0); MCHC 30.4 g/dL (32.0-37.0); Mean Platelet Volume 11.1 fL (9.5-12.2); Monocytes # (A) 0.45 X 10*3/uL (0.20-1.00); Monocytes % (A) 3.1 %; Neutrophils # (A) 12.79 X 10*3/uL (1.80-7.70); Platelet Count 248 X 10*3/uL (140-440); RBC 3.98 X 10*6/uL (4.10-5.20); RDW 13.4 % (11.5-14.5); WBC 14.54 X 10*3/uL (4.50-10.00)
--- NOTE | 2021-07-22 13:00 | P.CN ---
Psychiatric Consult - . Consult date: 07/22/21 Consult:: 07/22/21 12:59 IDENTIFYING DATA: This patient is a single, unemployed, 36-year-old female was admitted to the hospital for shortness of breath HISTORY OF PRESENT ILLNESS: The patient presented to the hospital on 07/20/2021, or shortness of breath. The patient was staying at [facility] for the past 4 days for fentanyl, heroin, and benzodiazepine abuse. The patient began expressing shortness of breath with poor oxygenation. She was then transferred to the emergency department. Patient was medically admitted. On 07/21/2021, at approximately 7 PM, the patient was noted to be upset and throw ing things around the room. She was screaming and slamming her bedside tree. The patient was requesting an increase in medications. The patient stated that she was upset because she "was problems with same medications at [facility] to be received here as well." She was noted to continue being agitated and yelling and psychiatry was consulted for agitation. We'll evaluate by the psychiatrist on 07/22/21, the patient is now calm and cooperative. The patient expressed that she was upset because the medications that she was receiving at [facility] were not transferred over to hear. Sheila benavidez expresses understanding at this time that Archie's between facilities are different. The patient is apologetic for her actions. She is currently denying any suicidal or homicidal ideation, intention, and/or plan. She is not reporting any visual hallucinations. She denying any paranoia or other delusions. The patient expresses that she just feels elevated anxiety related to her withdrawal. The patient does endorse auditory hallucinations which she describes as her own voice telling her to do things and be angry but denies it's ability to control her actions. The patient acknowledges today that how she acted was inappropriate and was apologetic. She does attribute her feelings to her withdrawal symptoms. PAST PSYCHIATRIC HISTORY: Patient has a history of bipolar disorder and polysubs tance abuse. The patient does report prior inpatient psychiatric hospitalizations including a recent stay at [facility]. She is currently on a regimen of Depakote, Seroquel, Catapres, and Subutex. Patient denies any psychiatric outpatient follow-up. The patient reports multiple attempts at suicide in the past. PAST MEDICAL HISTORY: Past Medical History: Seizure Disorder Additional Past Medical History / Comment(s): HEPatitis C History of Any Multi-Drug Resistant Organisms: None Reported Past Surgical History: Section, Cholecystectomy Past Anesthesia/Blood Transfusion Reactions: Previous Problems w/ Anesthesia Additional Past Anesthesia/Blood Transfusion Reaction / Comment(s): Pt states she has a tendency to have a hard time waking up after anesthesia. She states it just takes her a while to wake up. Past Psychological History: Anxiety, Bipolar, Depression, Schizophrenia Smoking Status: Current some day smoker Past Alcohol Use History: Abuse, Daily Additional Past Alcohol Use History / Comment(s): Pt states the last time she drank alcohol she was 23. She started smoking 2 ppd and states she smokes 10 cigarettes a day at this time. Past Drug Use History: Cocaine, Heroin, IV Drug Use, Marijuana, Methamphetamine, Opiates, Prescription Drug Abuse ALLERGIES: as per EMR. CHEMICAL DEPENDENCY HISTORY: Patient admits to opiate and benzodiazepine abuse. FAMILY PSYCHIATRIC/SUBSTANCE USE HISTORY: Not obtained. SOCIAL HISTORY: Patient lives in [facility]. She was with her children and sister. She was at [facility] for opiate use disorder. MENTAL STATUS EXAM: General Appearance: Patient appears to be stated age is alert, pleasant, and cooperative. Obese body habitus. Behavior: Patient is calmly lying in bed without any agitated behavior. Eye contact is appropriate. Speech: Patient's speech is fluent and nonpressured. Spontaneous with normal rate and volume. Mood/Affect: Patient reports their mood is "anxious", affect is congruent Suicidality/Homicidality: Patient denies having any suicidal or homicidal ideation intent or plan. Perceptions: Patient denies any visual hallucinations and denies any auditory hallucinations Though content/process: There is no evidence of any delusional thought content and thought process is linear and goal-directed. Memory and concentration: AOX3, grossly intact for the purposes of this session. Can spell "WORLD" backwards Judgment and insight: Fair IMPRESSIONS: Bronchospasm/bronchitis Opiate withdrawal Bipolar Disorder, unspecified Hypertension Leukocytosis PLAN: -Patient is currently not agitated at this time and has been calm and cooperative with staff today. Acute agitation yesterday secondary to opiate withdrawal and possible underlying personality disorder. Agree with PRN medications for agitation. Supportive psychotherapy given to the patient by this provider with reflective listening and affirmation. -At this time patient DOES NOT meet criteria for inpatient psychiatric admission. Patient is not presenting with imminent risk of harm to self or others. Although endorsing auditory hallucinations they appear to be mood congruent for her and not to the point of debilitation. Her period of acute agitation is likely secondary to her opiate withdrawal. -Would recommend the following medication changes/additions: No medication recommendations at this time. Continue Seroquel, depakote, catapres. Agree with Haldol PRN for agitation -Recommend SW to help patient arrange for return to rehabilitation once medically cleared. -Psychiatry will sign off at this point, please contact with any questions. 07/22/21 12:59
[2021-07-22] MEDS: HEPARIN SODIUM,PORCINE/PF 5,000 UNIT/0.5 ML SYRINGE SQ SCH ×2 (13:25→21:35)
[2021-07-22] MEDS: MULTIVITAMINS, THERA 1 EACH TAB PO SCH (13:26)
[2021-07-22] MEDS: THIAMINE 100 MG TAB PO SCH (13:26)
[2021-07-22] MEDS: FAMOTIDINE 20 MG/2 ML VIAL IV SCH (13:26)
[2021-07-22] MEDS: FOLIC ACID 1 MG TAB PO SCH (13:26)
[2021-07-22] MEDS: AZITHROMYCIN 500 MG TAB PO SCH (13:27)
[2021-07-22] MEDS: DIVALPROEX 250 MG TABLET.DR PO SCH ×2 (13:27→21:35)
[2021-07-22] MEDS: cloNIDine HCL 0.1 MG TAB PO SCH ×3 (13:32→21:36)
[2021-07-22] MEDS: SODIUM CHLORIDE 0.9% 1,000 ML IV SCH ×2 (13:39→21:22)
--- NOTE | 2021-07-22 14:17 | P.PN ---
Subjective From records: 36-year-old female presents emergency Department complaining shortness of breath per patient spent in rehabilitation for 4 days she has rehabilitating for fentanyl heroin and benzodiazepines. Patient states she's had no fever chills. Patient states she had this happen before when she was withdrawing from her opiates. Patient denies any calf pain or leg swelling. Patient denies any chest pain. Patient has palpitations. Patient denies any cough. Patient states she just feels short of breath and they told her her oxygenation was poor Workup in ED revealed elevated white blood count of 23.5, hemoglobin 13.1 with platelet count of 261, sodium 140, potassium 4.1, BUN/creatinine of 18/0.83 and glucose of 140; d-dimer is elevated CTA chest was done to rule out PE which was negative but did reveal interstitial markings and atelectasis and basis EKG shows normal sinus rhythm with no acute ST or T-wave changes Subjective: 07/21/2021 This is a pleasant 36 years old female who presents on 07/20 from [place] for shortness of breath and low oxygen reported in 80s, she wasn't [place] for detection of from heroin, fentanyl and benzodiazepine. When I saw the patient she was lying in bed does not look tachypneic however she was complaining of from dyspnea. She states she was in [facility] twice before she was sent to [facility] or [facility] receiving hospital because she was over medicated. And after stabilization she was discharged [place] about 2 weeks ago as per patient. Also she states that she was on oxygen at the previous hospital and ask her to follow up with paint mixer machine as an outpatient, however she denies any paint mixer machine she follow up with. She was not getting her oxygen at [facility] so she was sent to this facility. Condition denies chest pain. She is complaining from cough and some phlegm stating its greenish or yellow in color. She complains from pain everywhere. She was started on Suboxone equivalent at [facility] which is not available at her and that make her upset. However she received another pain medication here and 1 dose of volume is provided for her. She complains also from the area but no abdominal pain. No significant nausea or vomiting. No urinary complaints. She wants something for anxiety and she is hard to sleep On admission her CTA was negative for PE, competent was negative. 07/22/2021 Patient was agitated overnight from her opioid and benzodiazepine withdrawal, is more calm today. She still complaining of from dyspnea especially with exertion but is improving as per patient she is saturating 89% on room air and 95% and with her oxygen via nasal cannula, like her oxygenation is improving on steroids. Also she is been treated for acute tracheobronchitis and UTI with ceftriaxone and Zithromax, however her blood culture came back positive for Streptococcus and patient continued with Rocephin 2 g daily. Poorcalcitonin elevated 2.3. Also patient complaining of from suprapubic tenderness stating that she has a hernia there for a long time, it looks like she has some suprapubic nodular mass with smooth surface, mildly tender no rebound tenderness. We ordered a renal ultrasound in view of this mass and possible blood culture and ask for surgical team to evaluate the patient as well. Patient denies any depression or suicidal ideation Review of systems CONSTITUTIONAL: No fever, no malaise, no fatigue. HEENT: No recent visual problems or hearing problems. Denied any sore throat. CARDIOVASCULAR: No orthopnea, PND, no palpitations, no syncope. PULMONARY: No shortness of breath, no cough, no hemoptysis. GASTROINTESTINAL: No diarrhea, no nausea, no vomiting, no abdominal pain. Normoactive bowel sounds. NEUROLOGICAL: No headaches, no weakness, no numbness. Active Medications Generic Name Dose Route Start Last Admin Trade Name Freq PRN Reason Stop Dose Admin Acetaminophen 650 mg 07/20/21 16:44 07/21/21 13:20 Acetaminophen Tab 325 Mg Tab PO 650 mg Q4H PRN Administration Fever and/ or Pain Albuterol/Ipratropium 3 ml 07/20/21 16:43 07/22/21 11:00 Ipratropium-Albuterol 3 Ml Neb INHALATION 3 ml RT-Q4H PRN Administration Shortness Of Breath Or Wheezing Azithromycin 500 mg 07/22/21 13:30 07/22/21 13:27 Azithromycin 500 Mg Tab PO 500 mg DAILY KASSANDRA Administration Clonidine 0.1 mg 07/21/21 16:00 07/22/21 13:32 Clonidine Hcl 0.1 Mg Tab PO 0.1 mg TID KASSANDRA Administration Diphenhydramine HCl 25 mg 07/20/21 16:44 Diphenhydramine 25 Mg Cap PO Q4H PRN Allergy Symptoms Divalproex Sodium 250 mg 07/20/21 21:00 07/22/21 13:27 Divalproex 250 Mg Tablet.Dr PO 250 mg BID KASSANDRA Administration Famotidine 20 mg 07/22/21 21:00 Famotidine 20 Mg Tab PO BID KASSANDRA Folic Acid 1 mg 07/21/21 09:00 07/22/21 13:26 Folic Acid 1 Mg Tab PO 1 mg DAILY KASSANDRA Administration Haloperidol Lactate 4 mg 07/21/21 20:33 07/22/21 13:27 Haloperidol Lactate 5 Mg/Ml 1 Ml Vial IM 4 mg Q6HR PRN Administration Agitation or Acute Psychosis Heparin Sodium (Porcine) 5,000 unit 07/21/21 21:00 07/22/21 13:25 Heparin Sodium,Porcine/Pf 5,000 Unit/0.5 Ml Syringe SQ 5,000 unit Q12HR KASSANDRA Administration Hyoscyamine 0.125 mg 07/20/21 16:44 Hyoscyamine Sulfate 0.125 Mg Tab PO QID PRN GI Upset Sodium Chloride 1,000 mls @ 100 mls/hr 07/20/21 16:45 07/22/21 13:39 Saline 0.9% IV Not Given .Q10H KASSANDRA Ceftriaxone Sodium 2 gm/ 50 mls @ 100 mls/hr 07/22/21 09:00 07/22/21 13:44 Sodium Chloride IVPB Not Given Q24HR [facility] Ibuprofen 600 mg 07/20/21 16:44 07/21/21 11:30 Ibuprofen 600 Mg Tab PO 600 mg Q6H PRN Administration Fever and/ or Pain Methylprednisolone Sodium Succinate 40 mg 07/21/21 12:00 07/22/21 13:44 Methylprednisolone Sod Succi 125 Mg/2 Ml Vial IV Not Given Q4HR [facility] Multivitamins 1 each 07/21/21 09:00 07/22/21 13:26 Multivitamins, Thera 1 Each Tab PO 1 each DAILY KASSANDRA Administration Promethazine HCl 25 mg 07/20/21 20:23 Promethazine 25 Mg Tab PO Q6HR PRN Nausea And Vomiting Quetiapine Fumarate 400 mg 07/20/21 21:00 07/21/21 20:08 Quetiapine 200 Mg Tab PO 400 mg HS AKSSANDRA Administration Thiamine HCl 100 mg 07/21/21 09:00 07/22/21 13:26 Thiamine 100 Mg Tab PO 100 mg DAILY KASSANDRA Administration Objective - Vital Signs Vital signs: Vital Signs Temp 97.9 F 07/22/21 07:00 Pulse 67 07/22/21 11:11 Resp 18 07/22/21 08:00 BP 154/70 07/22/21 07:00 Pulse Ox 98 07/22/21 07:24 Intake & Output 07/21/21 07/22/21 07/22/21 18:59 06:59 18:59 Intake Total 1943 240 Balance 1943 240 Weight 111.584 kg Intake: Intake, IV Titration 850 Amount Azithromycin 500 mg In 250 Sodium Chloride 0.9% 250 ml @ 250 mls/hr IVPB DAILY KASSANDRA Rx#:[id number] Sodium Chloride 0.9% 1, 600 000 ml @ 100 mls/hr IV . Q10H KASSANDRA Rx#:[id number] Oral 1094 240 Other: Voiding Method Toilet # Voids 2 1 - Exam -GENERAL: The patient is alert and oriented x3, not in any acute distress. Obese HEENT: Pupils are round and equally reacting to light. EOMI. No scleral icterus. No conjunctival pallor. Normocephalic, atraumatic. No pharyngeal erythema. No thyromegaly. CARDIOVASCULAR: S1 and S2 present. No murmurs, rubs, or gallops. -PULMONARY: Chest is clear to auscultation, mild bilateral scattered wheezing, no crackles. -ABDOMEN: Soft, nontender, nondistended, normoactive bowel sounds. No palpable organomegaly. Suprapubic mass about 1-2 inches in diameter, smooth surface and mildly tender MUSCULOSKELETAL: No joint swelling or deformity. EXTREMITIES: No cyanosis, clubbing, or pedal edema. NEUROLOGICAL: Gross neurological examination did not reveal any focal deficits. SKIN: No rashes. no petechiae. - Labs CBC & Chem 7: 07/22/21 05:24 07/22/21 05:24 Labs: Abnormal Lab Results - Last 24 Hours (Table) 07/22/21 07/22/21 Range/Units 05:24 05:24 WBC 14.54 H (4.50-10.00) X 10*3/uL RBC 3.98 L (4.10-5.20) X 10*6/uL Hgb 11.5 L (12.0-15.0) g/dL MCHC 30.4 L (32.0-37.0) g/dL Immature Gran # 0.17 H (0.00-0.04) X 10*3/uL Neutrophils # 12.79 H (1.80-7.70) X 10*3/uL Eosinophils # 0 L (0.04-0.35) X 10*3/uL BUN 20 H (7-17) mg/dL Creatinine 0.46 L (0.52-1.04) mg/dL Glucose 211 H (74-99) mg/dL Microbiology - Last 24 Hours (Table) 07/20/21 15:29 Blood Culture Gram Stain - Preliminary Blood Blood Culture - Preliminary Streptococcus species 07/20/21 15:29 Blood Culture - Final Blood 07/20/21 15:10 Blood Culture - Preliminary Blood No Growth after 24 hours Assessment and Plan Assessment: Possible acute purulent tracheobronchitis Acute urinary tract infection Streptococcus bacteremia Suprapubic mass, rule out hernia. Recent heroin abuse with injecting and sniffing, injecting into both forearms and hands high blood pressure bipolar disorder and Seroquel and Depakote Obesity Plan: This is a pleasant 36 years old female who presents with bronchitis and heroin withdrawal continue with ceftriaxone and Zithromax, infectious disease team on the case Follow-up final results with blood culture Check ultrasound of renal system and urinary bladder Surgical team consult Labs and medication were reviewed.. Continue same treatment. Continue with symptomatic treatment. Resume home medication. Monitor lytes and vitals. DVT and GI prophylaxis. Further recommendationsas per clinical course of the patient DVT prophylaxis: Subcutaneous heparin GI Prophylaxis: Pepcid Prognosis is guarded
[2021-07-22] MEDS: LORazepam 2 MG/ML INJ IV PRN (15:33)
[2021-07-22] MEDS: FAMOTIDINE 20 MG TAB PO SCH (21:35)
[2021-07-22] MEDS: QUEtiapine 200 MG TAB PO SCH (21:36)
[2021-07-23] MEDS: methylPREDNISolone SOD SUCCI 125 MG/2 ML VIAL IV SCH ×4 (00:58→13:22)
--- NOTE | 2021-07-23 06:09 | PN ---
PROGRESS NOTE DATE OF SERVICE: 07/22/2021. REASON FOR FOLLOW UP: Pneumonia and bacteremia. INTERVAL HISTORY: Patient is afebrile. The patient is breathing slightly comfortably. The patient did complain of cough with occasional sputum production but sputum has not been collected. The patient denies having any nausea, vomiting or diarrhea. PHYSICAL EXAMINATION: Her blood pressure is 130/73 with a pulse of 71, temperature 98. She is 93% on room air. General description is a middle-aged female lying in bed in no distress. Respiratory system: Unlabored breathing, decreased breath sounds in the base. No wheeze. Heart S1, S2. Regular rate and rhythm. Abdomen soft, no tenderness. LAB: Hemoglobin is 11.5, white count 14.51, creatinine 0.46. Blood culture with alpha hemolytic streptococcus. DIAGNOSTIC IMPRESSION AND PLAN: Patient with alpha hemolytic streptococcal bacteremia. Concern for possible pneumonia. However, the patient does have a history of IV drug use. Blood cultures will be repeated to document clearance of bacteremia. Rocephin 2 grams daily to continue and monitor clinical course closely. MMODL / IJN: [id number] /
[2021-07-23] MEDS: SODIUM CHLORIDE 0.9% 1,000 ML IV SCH ×2 (06:17→17:02)
[2021-07-23 07:48] LABS: ALT 27 U/L (4-34); AST 26 U/L (14-36); African American GFR (CKD) >90 (>60 ml/min/1.73 sqM); Albumin 3.2 g/dL (3.5-5.0); Albumin/Globulin Ratio 0.9; Alkaline Phosphatase 130 U/L (38-126); Anion Gap 8 mmol/L; Blood Urea Nitrogen 21 mg/dL (7-17); Calcium 9.1 mg/dL (8.4-10.2); Carbon Dioxide 26 mmol/L (22-30); Chloride 105 mmol/L (98-107); Globulin 3.5 g/dL; Glucose 299 mg/dL (74-99); Non-African American GFR(CKD) >90 (>60 ml/min/1.73 sqM); Potassium 4.9 mmol/L (3.5-5.1); Sodium 139 mmol/L (137-145); Total Bilirubin 0.2 mg/dL (0.2-1.3); Total Protein 6.7 g/dL (6.3-8.2)
[2021-07-23] MEDS: IPRATROPIUM-ALBUTEROL 3 ML NEB INHALATION PRN ×3 (08:01→15:30)
[2021-07-23] MEDS: THIAMINE 100 MG TAB PO SCH (08:16)
[2021-07-23] MEDS: MULTIVITAMINS, THERA 1 EACH TAB PO SCH (08:16)
[2021-07-23] MEDS: FAMOTIDINE 20 MG TAB PO SCH ×2 (08:16→20:45)
[2021-07-23] MEDS: FOLIC ACID 1 MG TAB PO SCH (08:16)
[2021-07-23] MEDS: LORazepam 2 MG/ML INJ IV PRN ×2 (08:17→17:00)
[2021-07-23] MEDS: HEPARIN SODIUM,PORCINE/PF 5,000 UNIT/0.5 ML SYRINGE SQ SCH ×2 (08:17→20:45)
[2021-07-23] MEDS: AZITHROMYCIN 500 MG TAB PO SCH (08:22)
[2021-07-23] MEDS: cloNIDine HCL 0.1 MG TAB PO SCH ×3 (08:22→20:46)
[2021-07-23] MEDS: DIVALPROEX 250 MG TABLET.DR PO SCH ×2 (08:22→20:44)
[2021-07-23 09:05] LABS: Basophils # (A) 0.01 X 10*3/uL (0.00-0.10); Basophils % (A) 0.1 %; Eosinophils # (A) 0 X 10*3/uL (0.04-0.35); Eosinophils % (A) 0 %; HCT 38.3 % (37.2-46.3); HGB 11.6 g/dL (12.0-15.0); Lymphocytes # (A) 1.34 X 10*3/uL (0.90-5.00); Lymphocytes % (A) 12.8 %; MCH 28.2 pg (27.0-32.0); MCHC 30.3 g/dL (32.0-37.0); MCV 93.2 fL (80.0-97.0); Monocytes # (A) 0.24 X 10*3/uL (0.20-1.00); Monocytes % (A) 2.3 %; Neutrophils # (A) 8.71 X 10*3/uL (1.80-7.70); Neutrophils % (A) 83.2 %; Platelet Count 256 X 10*3/uL (140-440); RBC 4.11 X 10*6/uL (4.10-5.20); RDW 13.6 % (11.5-14.5); WBC 10.47 X 10*3/uL (4.50-10.00)
--- NOTE | 2021-07-23 09:05 | US ---
EXAMINATION TYPE: US renals and bladder DATE OF EXAM: 07/23/2021 COMPARISON: NONE CLINICAL HISTORY: uti , suprapubic mass . Hx UTI's. Patient has a hard palpable lower anterior mid/l eft pelvic region pannus, hx of two csections. EXAM MEASUREMENTS: Right Kidney: 10.3 x 5.2 x 4.9 cm Left Kidney: 10.5 x 5.5 x 4.9 cm Limited due to patient body habitus Right Kidney: No hydronephrosis or masses seen Left Kidney: No hydronephrosis or masses seen Bladder: anechoic, distended Bilateral Jets not seen At area of palpable in patient pelvic anterior soft tissue or pannus scanned. Multiple hypoechoic areas seen in subcutaneous adipose tissue. Nonmobile, nonvascular. Valsalva performed. Echogenic focus area seen with shadowing = 1.4 cm. Suboptimal due to large body habitus. Kidneys are symmetric and within normal limits in size. No obvi ous concerning solid or cystic mass on images saved. No hydronephrosis seen bilaterally. Bladder not greatly distended with some lobulated contour but no intraluminal mass or abnormal wall thickening. B ilateral distal ureter jets not seen. IMPRESSION: Suboptimal study. No hydronephrosis seen bilaterally. In the anterior subcutaneous tissue of the pelvis at site of prior surgery there are calcifications and hypoechoic avascular small nodul es. Cannot exclude subcutaneous foreign bodies. Unusual location for phleboliths and/or injection gra nulomas. Consider contrast-enhanced pelvic CT to further evaluate.
--- NOTE | 2021-07-23 12:31 | P.PN ---
Subjective From records: 36-year-old female presents emergency Department complaining shortness of breath per patient spent in rehabilitation for 4 days she has rehabilitating for fentanyl heroin and benzodiazepines. Patient states she's had no fever chills. Patient states she had this happen before when she was withdrawing from her opiates. Patient denies any calf pain or leg swelling. Patient denies any chest pain. Patient has palpitations. Patient denies any cough. Patient states she just feels short of breath and they told her her oxygenation was poor Workup in ED revealed elevated white blood count of 23.5, hemoglobin 13.1 with platelet count of 261, sodium 140, potassium 4.1, BUN/creatinine of 18/0.83 and glucose of 140; d-dimer is elevated CTA chest was done to rule out PE which was negative but did reveal interstitial markings and atelectasis and basis EKG shows normal sinus rhythm with no acute ST or T-wave changes Subjective: 07/21/2021 This is a pleasant 36 years old female who presents on 07/20 from [place] for shortness of breath and low oxygen reported in 80s, she wasn't [place] for detection of from heroin, fentanyl and benzodiazepine. When I saw the patient she was lying in bed does not look tachypneic however she was complaining of from dyspnea. She states she was in [facility] before she was sent to [facility] or [facility] receiving hospital because she was over medicated. And after stabilization she was discharged [place] about 2 weeks ago as per patient. Also she states that she was on oxygen at the previous hospital and ask her to follow up with proposal writer as an outpatient, however she denies any proposal writer she follow up with. She was not getting her oxygen at [place] so she was sent to this facility. Condition denies chest pain. She is complaining from cough and some phlegm stating its greenish or yellow in color. She complains from pain everywhere. She was started on Suboxone equivalent at [place] which is not available at her and that make her upset. However she received another pain medication here and 1 dose of volume is provided for her. She complains also from the area but no abdominal pain. No significant nausea or vomiting. No urinary complaints. She wants something for anxiety and she is hard to sleep On admission her CTA was negative for PE, competent was negative. 07/22/2021 Patient was agitated overnight from her opioid and benzodiazepine withdrawal, is more calm today. She still complaining of from dyspnea especially with exertion but is improving as per patient she is saturating 89% on room air and 95% and with her oxygen via nasal cannula, like her oxygenation is improving on steroids. Also she is been treated for acute tracheobronchitis and UTI with ceftriaxone and Zithromax, however her blood culture came back positive for Streptococcus and patient continued with Rocephin 2 g daily. Poorcalcitonin elevated 2.3. Also patient complaining of from suprapubic tenderness stating that she has a hernia there for a long time, it looks like she has some suprapubic nodular mass with smooth surface, mildly tender no rebound tenderness. We ordered a renal ultrasound in view of this mass and possible blood culture and ask for surgical team to evaluate the patient as well. Patient denies any depression or suicidal ideation 07/23/2021 Patient is clinically improving, she was seen walking in the hallway with no breathing difficulty. She was even without her nasal oxygen which was placed back after she wasn't intubated. No abdominal pain however she has some tenderness in the suprapubic nodule, suspicious for hernia, discussed the case with surgery team who recommended CT of the abdomen, also recommended same by radiologist with renal ultrasound showing hypoechoic vascular nodule in the suprapubic region. No hydronephrosis and renal ultrasound. improving leukocytosis down to 10.4. liver enzymes back to normal. with improvements of her oxygenation will lower her solu-medrol to 40 mg twice a day She remains on ceftriaxone 2 g daily for positive blood culture with alphahemolytic Streptococcus. Repeat blood cultures pending. Possible patient also had pneumonia and CT showing minimal articular interstitial infiltrates bilaterally. Discontinue Zithromax Check Procalcitonin and WBC tomorrow Objective - Vital Signs Vital signs: Vital Signs Temp 98.0 F 07/23/21 07:00 Pulse 84 07/23/21 11:28 Resp 16 07/23/21 08:00 BP 170/108 07/23/21 07:00 Pulse Ox 98 07/23/21 07:00 Intake & Output 07/22/21 07/23/21 07/23/21 18:59 06:59 18:59 Intake Total 480 Balance 480 Intake: Oral 480 Other: Voiding Method Toilet # Voids 2 1 - Exam -GENERAL: The patient is alert and oriented x3, not in any acute distress. Obese HEENT: Pupils are round and equally reacting to light. EOMI. No scleral icterus. No conjunctival pallor. Normocephalic, atraumatic. No pharyngeal erythema. No thyromegaly. CARDIOVASCULAR: S1 and S2 present. No murmurs, rubs, or gallops. -PULMONARY: Chest is clear to auscultation, mild bilateral scattered wheezing, no crackles. -ABDOMEN: Soft, nontender, nondistended, normoactive bowel sounds. No palpable organomegaly. Suprapubic mass about 1-2 inches in diameter, smooth surface and mildly tender MUSCULOSKELETAL: No joint swelling or deformity. EXTREMITIES: No cyanosis, clubbing, or pedal edema. NEUROLOGICAL: Gross neurological examination did not reveal any focal deficits. SKIN: No rashes. no petechiae. - Labs CBC & Chem 7: 07/23/21 06:31 07/23/21 06:31 Labs: Abnormal Lab Results - Last 24 Hours (Table) 07/23/21 07/23/21 Range/Units 06:31 06:31 WBC 10.47 H (4.50-10.00) X 10*3/uL Hgb 11.6 L (12.0-15.0) g/dL MCHC 30.3 L (32.0-37.0) g/dL Immature Gran # 0.17 H (0.00-0.04) X 10*3/uL Neutrophils # 8.71 H (1.80-7.70) X 10*3/uL Eosinophils # 0 L (0.04-0.35) X 10*3/uL BUN 21 H (7-17) mg/dL Glucose 299 H (74-99) mg/dL Alkaline Phosphatase 130 H (38-126) U/L Albumin 3.2 L (3.5-5.0) g/dL Microbiology - Last 24 Hours (Table) 07/20/21 15:10 Blood Culture - Preliminary Blood No Growth after 48 hours 07/20/21 15:29 Blood Culture Gram Stain - Preliminary Blood Blood Culture - Preliminary Alpha Hemolytic Streptococcus Assessment and Plan Assessment: Possible acute purulent tracheobronchitis versus bilateral reticular interstitial infiltrates for pneumonia Streptococcus bacteremia Possible Acute urinary tract infection Suprapubic mass, mostly incisional hernia. Recent heroin abuse with injecting and sniffing, injecting into both forearms and hands high blood pressure bipolar disorder and Seroquel and Depakote Obesity Plan: This is a pleasant 36 years old female who presents with bronchitis and heroin withdrawal continue with ceftriaxone, infectious disease team on the case Follow-up final results with blood culture, antibiotic blood culture Surgical team consult recommended computed tomography scan of the abdomen Labs and medication were reviewed.. Continue same treatment. Continue with symptomatic treatment. Resume home medication. Monitor lytes and vitals. DVT and GI prophylaxis. Further recommendationsas per clinical course of the patient DVT prophylaxis: Subcutaneous heparin GI Prophylaxis: Pepcid Prognosis is guarded
--- NOTE | 2021-07-23 13:34 | P.GSCN ---
History of Present Illness Consult date: 07/23/21 History of present illness: CHIEF COMPLAINT: Shortness of breath Reason for consult: Possible suprapubic hernia HISTORY OF PRESENT ILLNESS: This is a 36-year-old female admitted to the hospital on 07/20/2021 with diagnosis of an acute tracheobronchitis. Patient reports that she's had increase in lower abdominal pain was due to her severe cough. Patient reports having hernia in the suprapubic area for about 5 years. She reports not having any imaging completed on it. Surgical service consult blood in regards to possible suprapubic hernia. Patient reports having regular bowel movements. She denies any nausea or vomiting. Currently on a regular diet. Patient has been at rehab for her substance abuse. Patient denies injecting IV drugs into her lower abdomen. PAST MEDICAL HISTORY: IV drug abuse abuse hep C seizure, anxiety, bipolar, depression, schizophrenia, nicotine dependence PAST SURGICAL HISTORY: 2 C-sections, cholecystectomy MEDICATIONS: See list. ALLERGIES: See list. SOCIAL HISTORY: Heroin, prescription drug abuse REVIEW OF SYSTEMS: CONSTITUTIONAL: Denies fever or chills. HEENT: Denies blurred vision, vision changes, or eye pain. Denies hemoptysis CARDIOVASCULAR: Denies chest pain or pressure. RESPIRATORY: No shortness of breath. GASTROINTESTINAL: See HPI for pertinent findings HEMATOLOGIC: Denies bleeding disorders. GENITOURINARY: Denies any blood in urine or increased urinary frequency. SKIN: Denies pruitis. Denies rash. PHYSICAL EXAM: VITAL SIGNS: Reviewed GENERAL: Well-developed in no acute distress. HEENT: No sclera icterus. Extraocular movements grossly intact. Moist buccal mucosa. Head is atraumatic, normocephalic. No nasal drainage. ABDOMEN: Soft. Obese. Nondistended. Patient has a large pannus. Tenderness with palpation underneath the pannus. palpable nodular areas noted. No cellulitis. NEUROLOGIC: Alert and oriented. Cranial nerves II through XII grossly intact. LABORATORY DATA: WBC is 10.47 hemoglobin 11.6 platelets 256 Sodium 139 and has a 4.9 BUN 21 creatinine 0.59 glucose 299 Mildly elevated LFTs now normalized Positive blood culture IMAGING: Renal ultrasound suboptimal study. No hydronephrosis seen bilaterally. In the anterior subcutaneous tissue of the pelvis at site of prior surgery there calcifications and hypoactive avascular small nodules. Cannot exclude subcutan eous foreign bodies. Unusual location for phleboliths and/or injection granulomas. Consider contrast-enhanced pelvic CT to further evaluate. ASSESSMENT: 1. Lower abdominal pain. Concerns for possible incisional hernia. Ultrasound results noted with calcifications and hypoactive avascular small nodules in the subcutaneous tissue. PLAN: -Check computed tomography scan of the abdomen and pelvis with oral and IV contrast -Further recommendations forthcoming per CAT scan results -Continue supportive care -Continue regular diet Thank you for this consultation Physician Audiovisual Tech note has been reviewed by physician. Signing provider agrees with the documented findings, assessment, and plan of care. Past Medical History Past Medical History: Seizure Disorder Additional Past Medical History / Comment(s): HEPatitis C History of Any Multi-Drug Resistant Organisms: None Reported Past Surgical History: Section, Cholecystectomy Past Anesthesia/Blood Transfusion Reactions: Previous Problems w/ Anesthesia Additional Past Anesthesia/Blood Transfusion Reaction / Comm: Pt states she has a tendency to have a hard time waking up after anesthesia. She states it just takes her a while to wake up. Past Psychological History: Anxiety, Bipolar, Depression, Schizophrenia Smoking Status: Current some day smoker Past Alcohol Use History: Abuse, Daily Additional Past Alcohol Use History / Comment(s): Pt states the last time she drank alcohol she was 23. She started smoking 2 ppd and states she smokes 10 cigarettes a day at this time. Past Drug Use History: Cocaine, Heroin, IV Drug Use, Marijuana, Methamphetamine, Opiates, Prescription Drug Abuse - Past Family History Father Family Medical History: Myocardial Infarction (SD) Mother Family Medical History: Myocardial Infarction (SD) Medications and Allergies Home Medications Medication Instructions Recorded Confirmed Type Acetaminophen [Tylenol] 650 mg PO Q4H PRN 07/20/21 07/20/21 History Calcium/Magnesium/Zinc/Vitamin D 1 tab PO TID PRN 07/20/21 07/20/21 History Chlorpheniramine Maleate 4 mg PO Q4H PRN 07/20/21 07/20/21 History [Chlor-Trimeton] Divalproex [Depakote] 250 mg PO BID 07/20/21 07/20/21 History Docusate [Colace] 100 mg PO BID PRN 07/20/21 07/20/21 History Folic Acid 1 mg PO DAILY 07/20/21 07/20/21 History Hyoscyamine Sulfate [Levsin-Sl] 0.125 mg SL QID PRN 07/20/21 07/20/21 History Ibuprofen [Motrin Ib] 600 mg PO Q6H PRN 07/20/21 07/20/21 History Loperamide HCl [Imodium A-D] 4 mg PO QID PRN 07/20/21 07/20/21 History Multivitamins, Thera [Multivitamin 1 tab PO DAILY 07/20/21 07/20/21 History (formulary)] QUEtiapine [SEROquel] 400 mg PO HS 07/20/21 07/20/21 History Thiamine [Vitamin B-1] 100 mg PO DAILY 07/20/21 07/20/21 History buprenorphine HCL [Subutex] See Taper SUBLINGUAL DIRECTED 07/20/21 07/20/21 History cloNIDine HCL [Catapres] 0.1 mg PO Q4H PRN 07/20/21 07/20/21 History ondansetron HCL [Zofran] 8 mg PO Q6H PRN 07/20/21 07/20/21 History Allergies Allergy/AdvReac Type Severity Reaction Status Date / Time No Known Allergies Allergy Verified 07/20/21 15:11 Surgical - Exam Vital Signs Temp Pulse Resp BP Pulse Ox 99.2 F 102 H 24 110/64 92 L 07/20/21 13:44 07/20/21 13:44 07/20/21 13:44 07/20/21 13:44 07/20/21 13:44 Results - Labs 07/23/21 06:31 07/23/21 06:31 Abnormal Lab Results - Last 24 Hours (Table) 07/23/21 07/23/21 Range/Units 06:31 06:31 WBC 10.47 H (4.50-10.00) X 10*3/uL Hgb 11.6 L (12.0-15.0) g/dL MCHC 30.3 L (32.0-37.0) g/dL Immature Gran # 0.17 H (0.00-0.04) X 10*3/uL Neutrophils # 8.71 H (1.80-7.70) X 10*3/uL Eosinophils # 0 L (0.04-0.35) X 10*3/uL BUN 21 H (7-17) mg/dL Glucose 299 H (74-99) mg/dL Alkaline Phosphatase 130 H (38-126) U/L Albumin 3.2 L (3.5-5.0) g/dL Microbiology - Last 24 Hours (Table) 07/20/21 15:29 Blood Culture Gram Stain - Final Blood Blood Culture - Final Alpha Hemolytic Streptococcus 07/20/21 15:10 Blood Culture - Preliminary Blood No Growth after 48 hours Diabetes panel 07/23/21 Range/Units 06:31 Sodium 139 (137-145) mmol/L Potassium 4.9 (3.5-5.1) mmol/L Chloride 105 (98-107) mmol/L Carbon Dioxide 26 (22-30) mmol/L BUN 21 H (7-17) mg/dL Creatinine 0.59 (0.52-1.04) mg/dL Glucose 299 H (74-99) mg/dL Calcium 9.1 (8.4-10.2) mg/dL AST 26 (14-36) U/L ALT 27 (4-34) U/L Alkaline Phosphatase 130 H (38-126) U/L Total Protein 6.7 (6.3-8.2) g/dL Albumin 3.2 L (3.5-5.0) g/dL Calcium panel 07/23/21 Range/Units 06:31 Calcium 9.1 (8.4-10.2) mg/dL Albumin 3.2 L (3.5-5.0) g/dL Pituitary panel 07/23/21 Range/Units 06:31 Sodium 139 (137-145) mmol/L Potassium 4.9 (3.5-5.1) mmol/L Chloride 105 (98-107) mmol/L Carbon Dioxide 26 (22-30) mmol/L BUN 21 H (7-17) mg/dL Creatinine 0.59 (0.52-1.04) mg/dL Glucose 299 H (74-99) mg/dL Calcium 9.1 (8.4-10.2) mg/dL Adrenal panel 07/23/21 Range/Units 06:31 Sodium 139 (137-145) mmol/L Potassium 4.9 (3.5-5.1) mmol/L Chloride 105 (98-107) mmol/L Carbon Dioxide 26 (22-30) mmol/L BUN 21 H (7-17) mg/dL Creatinine 0.59 (0.52-1.04) mg/dL Glucose 299 H (74-99) mg/dL Calcium 9.1 (8.4-10.2) mg/dL Total Bilirubin 0.2 (0.2-1.3) mg/dL AST 26 (14-36) U/L ALT 27 (4-34) U/L Alkaline Phosphatase 130 H (38-126) U/L Total Protein 6.7 (6.3-8.2) g/dL Albumin 3.2 L (3.5-5.0) g/dL
[2021-07-23] MEDS: IOPAMIDOL CONTRAST (ORAL USE) VIAL PO PRN ×2 (15:05→16:51)
--- NOTE | 2021-07-23 15:13 | P.PN ---
Progress Note - Text Progress Note Date: 07/23/21 Interval History: Patient was seen resting in bed without any agitated behavior. The patient reports that she is feeling "okay." The patient was noted to have another episode of agitation yesterday. She received Ativan IM which calmed her down. The patient has since been requesting Ativan but was informed that she is only to receive it every 8 hours. The patient is currently receiving IV antibiotics for management and treatment of bacteremia. The patient has been noted to be occluding her IV site due to discomfort. She was informed that in order to feel better she will need to allow the antibiotics to enter her system in order to work. The patient is calm and cooperative with this provider. She's kind is denying any suicidal or homicidal ideation, intention, and/or plan. She is not reporting any auditory or visual hallucinations. She is denying any paranoia or other delusions. Patient denies any issues regarding her appetite or her sleep. Mental Status Exam: General Appearance: Patient appears to be stated age is alert, directable, and cooperative. Obese body habitus. Behavior: Patient is calmly lying in bed without any agitated behavior. Eye contact is appropriate. Speech: Patient's speech is fluent and nonpressured. Mood/Affect: Mood is improving mildly, affect is congruent and constricted. Suicidality/Homicidality: Patient denies having any suicidal or homicidal ideation intent or plan. Perceptions: Patient denies any visual hallucinations and denies any auditory hallucinations Though content/process: There is no evidence of any delusional thought content and thought process is linear and goal-directed. Memory and concentration: AOX3, grossly intact for the purposes of this session Judgment and insight: Improving mildly Vital Signs Temp 98.0 F 07/23/21 07:00 Pulse 84 07/23/21 11:28 Resp 16 07/23/21 13:44 BP 160/89 07/23/21 10:00 Pulse Ox 98 07/23/21 07:00 Intake & Output 07/22/21 07/23/21 07/23/21 18:59 06:59 18:59 Intake Total 480 Balance 480 Intake: Oral 480 Other: Voiding Method Toilet # Voids 2 1 Laboratory Results - Last 24 Hours 07/23/21 07/23/21 06:31 06:31 WBC 10.47 H RBC 4.11 Hgb 11.6 L Hct 38.3 MCV 93.2 MCH 28.2 MCHC 30.3 L RDW 13.6 Plt Count 256 MPV 11.0 Immature Gran % (Auto) 1.6 Absolute Nucleated RBC 0 Neutrophils % 83.2 Lymphocytes % 12.8 Monocytes % 2.3 Eosinophils % 0 Basophils % 0.1 Immature Gran # 0.17 H Neutrophils # 8.71 H Lymphocytes # 1.34 Monocytes # 0.24 Eosinophils # 0 L Basophils # 0.01 NRBC/100 WBC Diff 0 Sodium 139 Potassium 4.9 Chloride 105 Carbon Dioxide 26 Anion Gap 8 BUN 21 H Creatinine 0.59 Est GFR (CKD-EPI)AfAm >90 Est GFR (CKD-EPI)NonAf >90 Glucose 299 H Calcium 9.1 Total Bilirubin 0.2 AST 26 ALT 27 Alkaline Phosphatase 130 H Total Protein 6.7 Albumin 3.2 L Globulin 3.5 Albumin/Globulin Ratio 0.9 Assessment Streptococcus bacteremia Bronchospasm/bronchitis Personality disorder, unspecified Opiate withdrawal Bipolar Disorder, unspecified Hypertension Leukocytosis Plan: -Patient is currently not agitated at this time and has been calm and cooperative with staff today. Acute agitation yesterday secondary to opiate withdrawal and possible underlying personality disorder. Agree with PRN medications for agitation. -Along with dealing with postacute withdrawal symptoms, the patient appears to have an underlying personality disorder. The patient may have occasional episodes of outbursts and mood lability secondary to this personality disorder. We will use Ativan and Haldol when necessary for agitation should this occur. -At this time patient DOES NOT meet criteria for inpatient psychiatric admission. Patient is not presenting with imminent risk of harm to self or others. Although endorsing auditory hallucinations they appear to be mood congruent for her and not to the point of debilitation. Her period of acute agitation is likely secondary to her opiate withdrawal. -Would recommend the following medication changes/additions: No medication recommendations at this time. Continue Seroquel, depakote, catapres. Continue with Ativan and Haldol PRN for agitation -Psychiatry will sign off at this point, please contact with any questions.
--- NOTE | 2021-07-23 19:56 | CT ---
EXAMINATION TYPE: CT abdomen pelvis w con DATE OF EXAM: 07/23/2021 HISTORY: possible hernia CT DLP: 2999.8mGycm Automated Exposure Control for Dose Reduction was Utilized. CONTRAST: CT scan of the abdomen and pelvis is performed with IV Contrast, patient injected with 100 mL of Isov ue 300. COMPARISON: None FINDINGS: Suboptimal study due to patient's body habitus. LUNG BASES: Minimal bibasilar subsegmental atelectasis. INCLUDED CARDIAC STRUCTURES: Within normal limit. LIVER: Right hepatic lobe measures about 22 cm in craniocaudal/oblique axis. Hepatic contour is janes l. Hepatic parenchyma is heterogeneous without definite focal mass. GALLBLADDER : Surgically removed. BILIARY TREE: No abnormal biliary tree dilation. PANCREAS: No significant abnormality is seen. SPLEEN: No significant abnormality is seen. ADRENALS: Normal appearing right adrenal gland. Slight thickening to the medial limb of the left adre nal gland. KIDNEYS AND URETERS: There are 2 calcific densities in the right renal collecting system measuring up to 5 mm. There is mild prominence to slight dilatation of the proximal left ureter and central left renal collecting system. The right renal collecting system is not dilated. The kidneys demonstrate n ormal corticomedullary attenuation. URINARY BLADDER: Partially distended, unremarkable as seen. ESOPHAGUS: No significant abnormality is seen. STOMACH: No significant abnormality is seen. SMALL BOWEL: No significant abnormality is seen. LARGE BOWEL: No significant abnormality is seen. Large amount of stool in the colon. APPENDIX: Normal. HERNIAS: Fat-containing right abdominal wall hernia. There is mild stranding and subcutaneous air in the anterior mid abdominal wall seen on series 201 image 56. There are multiple calcified and noncalc ified soft tissue nodules in the anterior abdominal wall. UTERUS/ADNEXA: No gross abnormality seen. PERITONEUM/MESENTRY: No pneumoperitoneum or ascites. LYMPH NODES: No enlarged retroperitoneal or pelvic lymph nodes are appreciated. MAJOR VASCULAR STRUCTURES: Nonaneurysmal aorta. Unremarkable inferior vena cava. OSSEOUS STRUCTURES: Mild narrowing at L5-S1 intervertebral space. Facet joint arthropathy changes see n in the lumbar spine. Mild sclerotic changes at the anterior aspect of the bilateral sacroiliac join ts. IMPRESSION: 1. Nonobstructing right renal calculi measuring up to 5 mm. 2. Mild asymmetric prominence/dilatation of the left proximal ureter and central collecting system wi thout obvious etiology. Clinical correlation recommended. 3. Small fat-containing right abdominal wall hernia. 4. Hepatomegaly with heterogeneous hepatic parenchyma. Hepatocellular disease included in the differe ntial. 5.There is mild stranding and subcutaneous air in the anterior mid abdominal wall seen on series 201 image 56. There are multiple calcified and noncalcified soft tissue nodules in the anterior abdominal wall. These findings could be related to abdominal wall injections, clinical correlation recommended .
[2021-07-23] MEDS: methylPREDNISolone SOD SUCCI 40 MG/ML 1 ML VIAL IV SCH (20:44)
[2021-07-23] MEDS: QUEtiapine 200 MG TAB PO SCH (20:45)
[2021-07-23] MEDS: HALOPERIDOL LACTATE 5 MG/ML 1 ML VIAL IM PRN (20:46)
--- NOTE | 2021-07-23 23:45 | PN ---
PROGRESS NOTE DATE OF SERVICE: 07/23/2021 REASON FOR FOLLOWUP: Bacteremia pneumonia. INTERVAL HISTORY: Patient is afebrile. The patient is breathing comfortably. The patient denies having any chest pain. She continues to have a cough which is nonproductive now. No nausea, no vomiting. No abdominal pain or any diarrhea. PHYSICAL EXAMINATION: Blood pressure 157/94 with a pulse of 73, temperature 98.2. She is 99% on 3 L nasal cannula. General description is a middle-aged female up in the bed in no distress. Respiratory system: Unlabored breathing, decreased breath sounds at the base. No wheeze. Heart S1, S2. Regular rate and rhythm. Abdomen soft, no tenderness. LABS: Hemoglobin is 11.3, white count normalized 10.47, creatinine 0.59. DIAGNOSTIC IMPRESSION AND PLAN: Patient with streptococcal bacteremia with respiratory symptoms who did have elevated procalcitonin, source likely pneumonia. Blood culture has been repeated to document clearance of bacteremia. Continue with Rocephin. Will finish therapy with oral antibiotics. Continue supportive care. MMODL / IJN: [id number] /
[2021-07-24] MEDS: LORazepam 2 MG/ML INJ IV PRN ×3 (02:09→19:07)
[2021-07-24] MEDS: SODIUM CHLORIDE 0.9% 1,000 ML IV SCH ×2 (02:21→12:05)
[2021-07-24 07:10] LABS: Basophils % (A) 0 %; Eosinophils % (A) 0 %; HCT 40.4 % (34.0-46.0); HGB 12.5 gm/dL (11.4-16.0); Hypochromasia Slight; Lymphocytes # (A) 2.2 k/uL (1.0-4.8); Lymphocytes % (A) 19 %; MCH 29.1 pg (25.0-35.0); Monocytes # (A) 0.5 k/uL (0-1.0); Monocytes % (A) 5 %; Neutrophils # (A) 8.9 k/uL (1.3-7.7); Neutrophils % (A) 75 %; Platelet Count 261 k/uL (150-450); RDW 13.3 % (11.5-15.5); WBC 11.8 k/uL (3.8-10.6)
[2021-07-24] MEDS: IPRATROPIUM-ALBUTEROL 3 ML NEB INHALATION PRN ×4 (07:20→20:10)
[2021-07-24] MEDS: ACETAMINOPHEN TAB 325 MG TAB PO PRN (07:49)
[2021-07-24] MEDS: cloNIDine HCL 0.1 MG TAB PO SCH ×3 (07:50→21:02)
[2021-07-24] MEDS: DIVALPROEX 250 MG TABLET.DR PO SCH ×2 (07:51→21:02)
[2021-07-24] MEDS: MULTIVITAMINS, THERA 1 EACH TAB PO SCH (07:53)
[2021-07-24] MEDS: HEPARIN SODIUM,PORCINE/PF 5,000 UNIT/0.5 ML SYRINGE SQ SCH ×2 (07:53→21:02)
[2021-07-24] MEDS: methylPREDNISolone SOD SUCCI 40 MG/ML 1 ML VIAL IV SCH (07:53)
[2021-07-24] MEDS: THIAMINE 100 MG TAB PO SCH (07:53)
[2021-07-24] MEDS: FAMOTIDINE 20 MG TAB PO SCH ×2 (07:53→21:02)
[2021-07-24] MEDS: FOLIC ACID 1 MG TAB PO SCH (07:55)
--- NOTE | 2021-07-24 12:00 | XR ---
EXAMINATION TYPE: XR chest 2V DATE OF EXAM: 07/24/2021 COMPARISON: Chest x-ray 4 days ago HISTORY: Shortness of breath. TECHNIQUE: Frontal and lateral views of the chest are obtained. FINDINGS: There is no suspicious focal air space opacity, pleural effusion, or pneumothorax seen. T he cardiac silhouette size is stable and within normal limits. The osseous structures are intact. IMPRESSION: No acute cardiopulmonary process. No significant change from recent prior.
--- NOTE | 2021-07-24 14:16 | CDI ---
Documentation Clarification Form Date: 07/24/2021 01:43:08 PM From: Alanna Miller RN, CCDS Admit Date: 07/22/2021 08:59:00 AM Patient Name: Krystle Porras Visit Number: [id number] Discharge Date: ATTENTION: The Clinical Documentation Specialists (CDI) and [facility] Coding Staff appreciate your assistance in clarifying documentation. Please respond to the clarification below the line at the bottom and electronically sign. The CDI & [facility] Coding staff will review the response and follow-up if needed. Please note: Queries are made part of the Legal Health Record. If you have any questions, please contact the author of this message via ITS. Dr. Doty Sheet The patient presented with the following clinical indicators. Additional clarification regarding the etiology/cause of the clinical indicators is requested. 07/20 H/P: Significant leukocytosis; sepsis versus reactive, we will monitor CBC, CRP and procalicitonin; we will initiate further sepsis workup if white blood count remains elevated 07/23 ID Consult: Patient with streptococcal bacteremia, with respiratory symptoms who did have elevated procalcitonin, source likely pneumonia. Blood culture have been repeated. History/Risk Factors: Seizure disorder hepatitis C, bipolor, polysubstance abuse Clinical Indicators: 36-year-old female present to ED complaining of shortness of breath. She has diminished breath sounds with wheezing. 07/20 Vital signs: 110/64 102 24 99.2 07/20 WBC: 23.5 07/21 UA: Ur Leukocyte Esterase Negative, Urine WBC 9 07/20 CXR: Normal chest Ct Angiogram PE ruled out 07/20 EKG: NORMAL SINUS RHYTHM AT 96 BPM 07/20 Lactic acid; 1.8 Covid Not Detected 07/20 Blood cultures: Alpha hemolytic Streptococcus 07/23 Blood cultures: Pending Treatment: Monitor O2 sat's, Monitor lytes and vitals Rocephin 2GM IVPB Q 24 HRS Duoneb Inhalations Q4 PRN .9NS IV @ 100 MLS/HR Zithromax 500MG PO DAILY (07/21-07/23) Solu-Medrol 60 MB IV Q 6 HRS 07/20-07/21 (titrate per orders) In your professional opinion, please clarify if these findings signify one of the following conditions: [ ] Sepsis POA [ ] Sepsis, Not POA [ ] Sepsis ruled out [ ] Other, please specify [ ] Unable to determine SIRS Criteria: 2 or more of the following may indicate SIRS -Temperature < 96.8F (36C) or > 101.0F (38.3C) -Heart Rate > 90 bpm -Respiratory Rate > 20 breaths/min or PaCO2 < 32 mmHg -White Blood Cell Count > 12,000 or < 4,000 cells/mm3 or > 10% bands (Template Last Reviewed: November 2020) Sepsis POA, with tachypnea and leukocytosis MTDD
--- NOTE | 2021-07-24 15:19 | P.PN ---
Subjective Progress Note Date: 07/24/21 CHIEF COMPLAINT: Shortness of breath HISTORY OF PRESENT ILLNESS: Surgical service following regards patient's abdominal pain and concern of incisional hernia. Patient did have a computed tomography scan completed showing a small fat-containing right abdominal wall hernia. Hepatomegaly with heterogenesis hepatic parenchyma. Hepatocellular disease included in the differential. There is mild stranding and subcutaneous air in the anterior mid abdominal wall. There are multiple calcified and noncalcified soft tissue nodules in the anterior abdominal wall. These findings could be related to abdominal wall injections. Patient reports her pain is the same. Patient denies injecting any substance into her abdominal wall. Denies any nausea or vomiting. Afebrile. She is having bowel movements. WBC 11.8 PHYSICAL EXAM: VITAL SIGNS: Reviewed. GENERAL: Well-developed in no acute distress. HEENT: No sclera icterus. Extraocular movements grossly intact. Moist buccal mucosa. Head is atraumatic, normocephalic. ABDOMEN: Soft. Obese Nondistended. Tenderness of the patient on the pannus with palpable nodule areas. No cellulitis. NEUROLOGIC: Alert and oriented. Cranial nerves II through XII grossly intact. ASSESSMENT: 1. Lower abdominal pain 2. Small fat-containing right abdominal wall hernia 3. Multiple calcified and noncalcified soft tissue nodules in the anterior abdominal wall. These findings could be related to abdominal wall injections. These findings are noted on CAT scan PLAN: -Recommend Repair of abdominal wall hernia outpatient -Patient can be discharged from surgical standpoint when medically cleared -Continue regular diet Physician Team Manager note has been reviewed by physician. Signing provider agrees with the documented findings, assessment, and plan of care. Objective - Vital Signs Vital signs: Vital Signs Temp 98.4 F 07/24/21 07:00 Pulse 80 07/24/21 11:03 Resp 16 07/24/21 07:38 BP 151/95 07/24/21 07:00 Pulse Ox 96 07/24/21 07:00 Intake & Output 07/23/21 07/24/21 07/24/21 18:59 06:59 18:59 Other: Voiding Method Toilet Toilet # Voids 2 2 1 - Labs CBC & Chem 7: 07/24/21 04:45 07/23/21 06:31 Labs: Abnormal Lab Results - Last 24 Hours (Table) 07/24/21 Range/Units 04:45 WBC 11.8 H (3.8-10.6) k/uL Neutrophils # 8.9 H (1.3-7.7) k/uL Microbiology - Last 24 Hours (Table) 07/23/21 06:31 Blood Culture - Preliminary Blood No Growth after 24 hours 07/20/21 15:10 Blood Culture - Preliminary Blood No Growth after 72 hours 07/20/21 15:29 Blood Culture Gram Stain - Final Blood Blood Culture - Final Alpha Hemolytic Streptococcus
[2021-07-24] MEDS: HALOPERIDOL LACTATE 5 MG/ML 1 ML VIAL IM PRN (16:37)
--- NOTE | 2021-07-24 18:59 | P.PN ---
Subjective From records: 36-year-old female presents emergency Department complaining shortness of breath per patient spent in rehabilitation for 4 days she has rehabilitating for fentanyl heroin and benzodiazepines. Patient states she's had no fever chills. Patient states she had this happen before when she was withdrawing from her opiates. Patient denies any calf pain or leg swelling. Patient denies any chest pain. Patient has palpitations. Patient denies any cough. Patient states she just feels short of breath and they told her her oxygenation was poor Workup in ED revealed elevated white blood count of 23.5, hemoglobin 13.1 with platelet count of 261, sodium 140, potassium 4.1, BUN/creatinine of 18/0.83 and glucose of 140; d-dimer is elevated CTA chest was done to rule out PE which was negative but did reveal interstitial markings and atelectasis and basis EKG shows normal sinus rhythm with no acute ST or T-wave changes Subjective: 07/21/2021 This is a pleasant 36 years old female who presents on 07/20 from [place] for shortness of breath and low oxygen reported in 80s, she wasn't [place] for detection of from heroin, fentanyl and benzodiazepine. When I saw the patient she was lying in bed does not look tachypneic however she was complaining of from dyspnea. She states she was in [facility] twice before she was sent to [facility] or [facility] receiving hospital because she was over medicated. And after stabilization she was discharged [place] about 2 weeks ago as per patient. Also she states that she was on oxygen at the previous hospital and ask her to follow up with reimbursement consultant as an outpatient, however she denies any reimbursement consultant she follow up with. She was not getting her oxygen at [place] so she was sent to this facility. Condition denies chest pain. She is complaining from cough and some phlegm stating its greenish or yellow in color. She complains from pain everywhere. She was started on Suboxone equivalent at [place] which is not available at her and that make her upset. However she received another pain medication here and 1 dose of volume is provided for her. She complains also from the area but no abdominal pain. No significant nausea or vomiting. No urinary complaints. She wants something for anxiety and she is hard to sleep On admission her CTA was negative for PE, competent was negative. 07/22/2021 Patient was agitated overnight from her opioid and benzodiazepine withdrawal, is more calm today. She still complaining of from dyspnea especially with exertion but is improving as per patient she is saturating 89% on room air and 95% and with her oxygen via nasal cannula, like her oxygenation is improving on steroids. Also she is been treated for acute tracheobronchitis and UTI with ceftriaxone and Zithromax, however her blood culture came back positive for Streptococcus and patient continued with Rocephin 2 g daily. Poorcalcitonin elevated 2.3. Also patient complaining of from suprapubic tenderness stating that she has a hernia there for a long time, it looks like she has some suprapubic nodular mass with smooth surface, mildly tender no rebound tenderness. We ordered a renal ultrasound in view of this mass and possible blood culture and ask for surgical team to evaluate the patient as well. Patient denies any depression or suicidal ideation 07/23/2021 Patient is clinically improving, she was seen walking in the hallway with no breathing difficulty. She was even without her nasal oxygen which was placed back after she wasn't intubated. No abdominal pain however she has some tenderness in the suprapubic nodule, suspicious for hernia, discussed the case with surgery team who recommended CT of the abdomen, also recommended same by radiologist with renal ultrasound showing hypoechoic vascular nodule in the suprapubic region. No hydronephrosis and renal ultrasound. improving leukocytosis down to 10.4. liver enzymes back to normal. with improvements of her oxygenation will lower her solu-medrol to 40 mg twice a day She remains on ceftriaxone 2 g daily for positive blood culture with alphahemolytic Streptococcus. Repeat blood cultures pending. Possible patient also had pneumonia and CT showing minimal articular interstitial infiltrates bilaterally. Discontinue Zithromax Check Procalcitonin and WBC tomorrow 07/24/2021 Patient is seen this morning sitting in her bed off oxygen and breathing quietly, later on she noted back. She still complaining of from some dyspnea but thinks she is improving and asking when she can go home. No other symptoms, no chest pain or abdominal pain. No diarrhea. Vitals are stable. CT of the abdomen and pelvis with contrast: Nonobstructing right renal calculi, 5 mm. Small contained and right abdominal wall hernia. Hepatomegaly. Surgery team recommended hernia repair as an outpatient and cleared by them for discharge Patient remains on ceftriaxone 2 g daily, repeat blood culture is still pending showing no growth after 24 hours. Repeat chest x-ray today: No acute cardiopulmonary process. No significant change from recent prior Objective - Vital Signs Vital signs: Vital Signs Temp 98.1 F 07/24/21 14:47 Pulse 76 07/24/21 14:47 Resp 18 07/24/21 14:47 BP 133/92 07/24/21 14:47 Pulse Ox 98 07/24/21 14:47 Intake & Output 07/23/21 07/24/21 07/24/21 18:59 06:59 18:59 Intake Total 300 Balance 300 Intake: Oral 300 Other: Voiding Method Toilet Toilet # Voids 2 2 2 - Exam -GENERAL: The patient is alert and oriented x3, not in any acute distress. Obese HEENT: Pupils are round and equally reacting to light. EOMI. No scleral icterus. No conjunctival pallor. Normocephalic, atraumatic. No pharyngeal erythema. No thyromegaly. CARDIOVASCULAR: S1 and S2 present. No murmurs, rubs, or gallops. -PULMONARY: Chest is clear to auscultation, mild bilateral scattered wheezing, no crackles. -ABDOMEN: Soft, nontender, nondistended, normoactive bowel sounds. No palpable organomegaly. Suprapubic mass about 1-2 inches in diameter, smooth surface and mildly tender MUSCULOSKELETAL: No joint swelling or deformity. EXTREMITIES: No cyanosis, clubbing, or pedal edema. NEUROLOGICAL: Gross neurological examination did not reveal any focal deficits. SKIN: No rashes. no petechiae. - Labs CBC & Chem 7: 07/24/21 04:45 07/23/21 06:31 Labs: Abnormal Lab Results - Last 24 Hours (Table) 07/24/21 07/24/21 Range/Units 04:45 04:45 WBC 11.8 H (3.8-10.6) k/uL Neutrophils # 8.9 H (1.3-7.7) k/uL Procalcitonin 0.51 H (0.02-0.09) ng/mL Microbiology - Last 24 Hours (Table) 07/23/21 06:31 Blood Culture - Preliminary Blood No Growth after 24 hours 07/20/21 15:10 Blood Culture - Preliminary Blood No Growth after 72 hours 07/20/21 15:29 Blood Culture Gram Stain - Final Blood Blood Culture - Final Alpha Hemolytic Streptococcus Assessment and Plan Assessment: Possible acute purulent tracheobronchitis versus bilateral reticular interstitial infiltrates for pneumonia Streptococcus bacteremia Possible Acute urinary tract infection Suprapubic mass, mostly incisional hernia. Recent heroin abuse with injecting and sniffing, injecting into both forearms and hands high blood pressure bipolar disorder and Seroquel and Depakote Obesity Plan: This is a pleasant 36 years old female who presents with bronchitis and heroin withdrawal continue with ceftriaxone, infectious disease team on the case Follow-up final results with blood culture Surgical team consult recommended outpatient hernia repair Labs and medication were reviewed.. Continue same treatment. Continue with symptomatic treatment. Resume home medication. Monitor lytes and vitals. DVT and GI prophylaxis. Further recommendations as per clinical course of the patient DVT prophylaxis: Subcutaneous heparin GI Prophylaxis: Pepcid Prognosis is guarded
[2021-07-24] MEDS: methylPREDNISolone SOD SUCCI 125 MG/2 ML VIAL IV SCH (19:07)
[2021-07-24] MEDS: QUEtiapine 200 MG TAB PO SCH (21:02)
[2021-07-25] MEDS: methylPREDNISolone SOD SUCCI 125 MG/2 ML VIAL IV SCH ×3 (00:02→13:37)
--- NOTE | 2021-07-25 06:59 | PN ---
PROGRESS NOTE DATE OF SERVICE: 07/24/2021 REASON FOR FOLLOW UP: Streptococcal bacteremia concerning for a pneumonia. INTERVAL HISTORY: The patient is afebrile. The patient is currently breathing comfortably. Denies having any chest pain or shortness of breath. She did have a cough, not bringing up any sputum. No abdominal pain or diarrhea. PHYSICAL EXAMINATION: Blood pressure 153/95 with a pulse of 83, temperature 98.2. She is 100% on 2 L nasal cannula. General description is a middle-aged female lying in bed in no distress. Respiratory system: Unlabored breathing, decreased breath sounds at the base. No wheeze. Heart S1, S2. Regular rate and rhythm. Abdomen soft, no tenderness. LABS: Hemoglobin is 12.4, white count 11.8, creatinine 0.59. Repeat blood culture has been negative so far. DIAGNOSTIC IMPRESSION AND PLAN: Patient with alpha hemolytic streptococcal bacteremia concerning for possible source pneumonia. Repeat blood culture negative. Patient is covered with Rocephin, transition to oral Ceftin on discharge and continue supportive care. MMODL / IJN: [id number] /
[2021-07-25] MEDS: FOLIC ACID 1 MG TAB PO SCH (08:47)
[2021-07-25] MEDS: MULTIVITAMINS, THERA 1 EACH TAB PO SCH (08:48)
[2021-07-25] MEDS: FAMOTIDINE 20 MG TAB PO SCH (08:48)
[2021-07-25] MEDS: LORazepam 2 MG/ML INJ IV PRN ×2 (08:48→16:55)
[2021-07-25] MEDS: cloNIDine HCL 0.1 MG TAB PO SCH ×2 (08:49→16:16)
[2021-07-25] MEDS: DIVALPROEX 250 MG TABLET.DR PO SCH (08:50)
[2021-07-25] MEDS: HEPARIN SODIUM,PORCINE/PF 5,000 UNIT/0.5 ML SYRINGE SQ SCH (08:51)
[2021-07-25] MEDS: THIAMINE 100 MG TAB PO SCH (09:34)
--- NOTE | 2021-07-25 11:14 | P.PN ---
Progress Note - Text Progress Note Date: 07/25/21 Patient states she feels anxious. She is requesting something for her nerves On exam vitals are stable. Abdomen soft. Reducible incisional hernia is located at [place] incision Patient will undergo outpatient repair of incisional hernia when stable.
[2021-07-25] MEDS: HALOPERIDOL LACTATE 5 MG/ML 1 ML VIAL IM PRN (14:02)
[2021-07-25 14:17] VITALS: BP 149/74; RESP 17; TEMP 97.6
[2021-07-25] MEDS ORDERED: diphenhydrAMINE 50 MG CAP PO STA (14:32)
[2021-07-25] MEDS ORDERED: cloNIDine HCL 0.1 MG TAB PO STA (14:36)
--- NOTE | 2021-07-25 14:37 | P.PN ---
Subjective From records: 36-year-old female presents emergency Department complaining shortness of breath per patient spent in rehabilitation for 4 days she has rehabilitating for fentanyl heroin and benzodiazepines. Patient states she's had no fever chills. Patient states she had this happen before when she was withdrawing from her opiates. Patient denies any calf pain or leg swelling. Patient denies any chest pain. Patient has palpitations. Patient denies any cough. Patient states she just feels short of breath and they told her her oxygenation was poor Workup in ED revealed elevated white blood count of 23.5, hemoglobin 13.1 with platelet count of 261, sodium 140, potassium 4.1, BUN/creatinine of 18/0.83 and glucose of 140; d-dimer is elevated CTA chest was done to rule out PE which was negative but did reveal interstitial markings and atelectasis and basis EKG shows normal sinus rhythm with no acute ST or T-wave changes Subjective: 07/21/2021 This is a pleasant 36 years old female who presents on 07/20 from [place] for shortness of breath and low oxygen reported in 80s, she wasn't [place] for detection of from heroin, fentanyl and benzodiazepine. When I saw the patient she was lying in bed does not look tachypneic however she was complaining of from dyspnea. She states she was in [facility] twice before she was sent to [facility] [place] [facility] [place] because she was over medicated. And after stabilization she was discharged [place] about 2 weeks ago as per patient. Also she states that she was on oxygen at the previous hospital and ask her to follow up with diversional therapist as an outpatient, however she denies any diversional therapist she follow up with. She was not getting her oxygen at [place] so she was sent to this facility. Condition denies chest pain. She is complaining from cough and some phlegm stating its greenish or yellow in color. She complains from pain everywhere. She was started on Suboxone equivalent at [place] which is not available at her and that make her upset. However she received another pain medication here and 1 dose of volume is provided for her. She complains also from the area but no abdominal pain. No significant nausea or vomiting. No urinary complaints. She wants something for anxiety and she is hard to sleep On admission her CTA was negative for PE, competent was negative. 07/22/2021 Patient was agitated overnight from her opioid and benzodiazepine withdrawal, is more calm today. She still complaining of from dyspnea especially with exertion but is improving as per patient she is saturating 89% on room air and 95% and with her oxygen via nasal cannula, like her oxygenation is improving on steroids. Also she is been treated for acute tracheobronchitis and UTI with ceftriaxone and Zithromax, however her blood culture came back positive for Streptococcus and patient continued with Rocephin 2 g daily. Poorcalcitonin elevated 2.3. Also patient complaining of from suprapubic tenderness stating that she has a hernia there for a long time, it looks like she has some suprapubic nodular mass with smooth surface, mildly tender no rebound tenderness. We ordered a renal ultrasound in view of this mass and possible blood culture and ask for surgical team to evaluate the patient as well. Patient denies any depression or suicidal ideation 07/23/2021 Patient is clinically improving, she was seen walking in the hallway with no breathing difficulty. She was even without her nasal oxygen which was placed back after she wasn't intubated. No abdominal pain however she has some tenderness in the suprapubic nodule, suspicious for hernia, discussed the case with surgery team who recommended CT of the abdomen, also recommended same by radiologist with renal ultrasound showing hypoechoic vascular nodule in the suprapubic region. No hydronephrosis and renal ultrasound. improving leukocytosis down to 10.4. liver enzymes back to normal. with improvements of her oxygenation will lower her solu-medrol to 40 mg twice a day She remains on ceftriaxone 2 g daily for positive blood culture with alphahemolytic Streptococcus. Repeat blood cultures pending. Possible patient also had pneumonia and CT showing minimal articular interstitial infiltrates bilaterally. Discontinue Zithromax Check Procalcitonin and WBC tomorrow 07/24/2021 Patient is seen this morning sitting in her bed off oxygen and breathing quietly, later on she noted back. She still complaining of from some dyspnea but thinks she is improving and asking when she can go home. No other symptoms, no chest pain or abdominal pain. No diarrhea. Vitals are stable. CT of the abdomen and pelvis with contrast: Nonobstructing right renal calculi, 5 mm. Small contained and right abdominal wall hernia. Hepatomegaly. Surgery team recommended hernia repair as an outpatient and cleared by them for discharge Patient remains on ceftriaxone 2 g daily, repeat blood culture is still pending showing no growth after 24 hours. Repeat chest x-ray today: No acute cardiopulmonary process. No significant change from recent prior 07/25/2021 Patient breathing is significantly improving, she is wearing oxygen for comfort. She is saturating 94% on room air while on exertion. Patient does not need home oxygen upon discharge. Solu-Medrol ordered prednisone 40 mg daily starting tomorrow and taper upon discharge She remains on ceftriaxone with plan to switch it to Ceftin upon discharge per ID team recommendation She feels anxious, we will give 1 dose of clonidine and 1 dose of Benadryl 50 mg She denies any suicidal or homicidal ideation, no hallucination She denies any other complaints Hemodynamically stable. Possible discharge in 24-48 hours if she remains stable and improving Patient states she does not have a PCP but has medical insurance, was instructed to call her medical insurance provider and finding a PCP to follow up in 1 week after discharge and she verbalized understanding and acceptance Objective - Vital Signs Vital signs: Vital Signs Temp 97.6 F 07/25/21 14:00 Pulse 82 07/25/21 14:00 Resp 17 07/25/21 14:00 BP 149/74 07/25/21 14:00 Pulse Ox 93 L 07/25/21 14:00 Intake & Output 07/24/21 07/25/21 07/25/21 18:59 06:59 18:59 Intake Total 300 744 Balance 300 744 Intake: Oral 300 744 Other: Voiding Method Toilet Toilet Toilet # Voids 2 3 - Exam -GENERAL: The patient is alert and oriented x3, not in any acute distress. Obese HEENT: Pupils are round and equally reacting to light. EOMI. No scleral icterus. No conjunctival pallor. Normocephalic, atraumatic. No pharyngeal erythema. No thyromegaly. CARDIOVASCULAR: S1 and S2 present. No murmurs, rubs, or gallops. -PULMONARY: Chest is clear to auscultation, mild bilateral scattered wheezing, no crackles. -ABDOMEN: Soft, nontender, nondistended, normoactive bowel sounds. No palpable organomegaly. Suprapubic mass about 1-2 inches in diameter, smooth surface and mildly tender MUSCULOSKELETAL: No joint swelling or deformity. EXTREMITIES: No cyanosis, clubbing, or pedal edema. NEUROLOGICAL: Gross neurological examination did not reveal any focal deficits. SKIN: No rashes. no petechiae. - Labs CBC & Chem 7: 07/24/21 04:45 07/23/21 06:31 Labs: Microbiology - Last 24 Hours (Table) 07/23/21 06:31 Blood Culture - Preliminary Blood No Growth after 48 hours 07/20/21 15:10 Blood Culture - Preliminary Blood No Growth after 96 hours Assessment and Plan Assessment: Possible acute purulent tracheobronchitis versus bilateral reticular interstitial infiltrates for pneumonia Streptococcus bacteremia Possible Acute urinary tract infection Suprapubic mass, mostly incisional hernia. Recent heroin abuse with injecting and sniffing, injecting into both forearms and hands high blood pressure bipolar disorder and Seroquel and Depakote Obesity Plan: This is a pleasant 36 years old female who presents with bronchitis and heroin withdrawal continue with ceftriaxone, infectious disease team on the case Follow-up final results with blood culture Surgical team consult recommended outpatient hernia repair Labs and medication were reviewed.. Continue same treatment. Continue with symptomatic treatment. Resume home medication. Monitor lytes and vitals. DVT and GI prophylaxis. Further recommendations as per clinical course of the patient DVT prophylaxis: Subcutaneous heparin GI Prophylaxis: Pepcid Prognosis is guarded
--- NOTE | 2021-07-25 15:17 | PN ---
PROGRESS NOTE DATE OF SERVICE: 07/25/2021 REASON FOR FOLLOWUP: Bacteremia, likely pneumonia. INTERVAL HISTORY: The patient is afebrile. The patient is breathing comfortably. The patient denies having any chest pain or shortness of breath. She did have a cough but not bringing up any sputum. No vomiting. No abdominal pain or diarrhea. PHYSICAL EXAMINATION: Blood pressure 149/74, pulse 82, temperature 97.6. She is 93% on 3 L nasal cannula. General description is a middle-aged female up in the bed in no distress. RESPIRATORY SYSTEM: Unlabored breathing. Clear to auscultation anteriorly. HEART: S1, S2. Regular rate and rhythm. ABDOMEN: Soft. No tenderness. LABS: No new labs have been obtained today. Blood culture repeat has been negative. DIAGNOSTIC IMPRESSION AND PLAN: Patient with alpha hemolytic streptococcal bacteremia, concern for possible pneumonia, as she did have respiratory symptoms. Overall responding to the Rocephin; to continue. Transition to oral antibiotic on discharge and continue with supportive care. MMODL / IJN: [id number] /
[2021-07-25] MEDS: IPRATROPIUM-ALBUTEROL 3 ML NEB INHALATION PRN (16:06)
[2021-07-25 16:12] VITALS: PULSE 88
[2021-07-26] MEDS ORDERED: predniSONE 20 MG TAB PO SCH (09:00)
== END 2021-07-25 19:16 | disposition home or self-care (01) | DRG 871 ==
LOC: EC 13:41 → 6NMEDSUR 16:43 → OBSVTOIN 07-22 08:59
PROVIDERS: ADMIT Internal Medicine; ATTEND Internal Medicine
PROC: 05HD33Z Insertion of Infusion Device into Right Cephalic Vein, Percutaneous Approach (ICD-10-PCS; principal; 2021-07-22 07:30)
DX: A41.9 Sepsis, unspecified organism (principal); J18.9 Pneumonia, unspecified organism; F11.23 Opioid dependence with withdrawal; F13.239 Sedative, hypnotic or anxiolytic dependence with withdrawal, unspecified; J98.11 Atelectasis; N39.0 Urinary tract infection, site not specified; Z20.822 Contact with and (suspected) exposure to COVID-19; B95.4 Other streptococcus as the cause of diseases classified elsewhere; E66.9 Obesity, unspecified; F12.10 Cannabis abuse, uncomplicated; F14.10 Cocaine abuse, uncomplicated; F17.210 Nicotine dependence, cigarettes, uncomplicated; F20.9 Schizophrenia, unspecified; F31.9 Bipolar disorder, unspecified; F41.9 Anxiety disorder, unspecified; F60.9 Personality disorder, unspecified; G40.909 Epilepsy, unspecified, not intractable, without status epilepticus; I10 Essential (primary) hypertension; J20.9 Acute bronchitis, unspecified; J45.909 Unspecified asthma, uncomplicated; K43.2 Incisional hernia without obstruction or gangrene; Z82.49 Family history of ischemic heart disease and other diseases of the circulatory system; Z79.899 Other long term (current) drug therapy; B19.20 Unspecified viral hepatitis C without hepatic coma; F19.10 Other psychoactive substance abuse, uncomplicated; N20.0 Calculus of kidney
CPT/HCPCS: 36410; 36415; 71046; 71275; 74177; 76770; 76937; 80048; 80053; 80076; 81001; 83605; 83880; 84145; 84484; 84703; 85025; 85379; 85610; 85730; 86140; 87040; 87077; 87186; 87635; 93005; 93970; 94640; 94760; 96365; 96375; 99285